=== PATIENT | male | born 1950 | race Asian ===

== ENCOUNTER 2023-12-10 14:09 | Inpatient (IN) | payer MEDICARE, SELFPAY ==
[2023-12-10] VITALS (9 sets, daily range): BP systolic 150–190; BP diastolic 54–84; BMI 24.4; BMI 24.0
--- NOTE | 2023-12-10 11:49 | ED.SKININJ ---
HPI-Injury
General
Chief Complaint: Skin Problem
Source: patient, spouse and other (pt neighbors who are fluent in [place])
Exam Limitations: none
Time Seen by Provider: 12/10/23 11:47
Nursing documentation reviewed up to this point in time: agreed with
Travel History
Have you had any contact with someone who has COVID-19?: No
Do you have any symptoms of coronavirus? Fever > 100 degrees, chills, cough, shortness of breath, sore throat, loss of taste or smell, muscle aches, or headache?: No
History of Present Illness-Injury
Initial Injury comments:
73-year-old male with history of CVA, HTN, HLD, NIDDM presents stating he has had a chronic wart on the left second toe that has become increasingly red, painful, swollen in the past 4 days [facility] had an x-ray and lab work
and EKG, the lab work and EKG were scanned into this chart. Xray in [facility]. Pt has had low grade fever. Denies chill, n/v.
Past History
Past History
ED Past Medical History: CVA, HTN, Hypercholesterolemia and NIDDM
Social History
Tobacco: Non-smoker
Personal:
Living: with family
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 )
Review of Systems
Review of Systems
Allergies reviewed?: Yes
All Other Systems: ROS reviewed and negative except as documented in HPI and ROS
Constitutional: Denies fever or chills
Respiratory: Denies trouble breathing
Cardiac: Denies chest pain
ABD/GI: Denies abdominal pain, nausea or vomiting
: Denies dysuria or difficulty voiding
Musculoskeletal: Reports other (pain and swelling left foot second toe)
Skin: Reports other (swelling, redness, discoloration left 2nd toe)
Phy Exam
Physical Exam
Physical Exam:
GENERAL: No acute distress. A&Ox3.
CONSTITUTIONAL: 100.0 on arrival
EYES: PERRL, conjunctivae normal
Neck: Supple
ENMT: moist mucus membranes, Pharynx nl
RESPIRATORY: Regular respirations, nonlabored, lungs clear.
CARDIOVASCULAR: Regular rate and rhythm, no murmurs, no rubs.
GI: Soft, nontender, normal BS
MUSCULOSKELETAL: Left second toe is swollen, red, dark grayish color with sloughing skin. Moves with ease. Well perfused. No edema
SKIN: Warm, dry, pink
PSYCH: Normal mood and affect. Well kept, interactive and appropriate
NEUROLOGIC: Awake, alert and oriented. No focal neurological deficits
Course
Orders/Labs/Results
Orders:
Orders
12/10/23 12:33
Complete Blood Count/With Diff Urgent
Comprehensive Metabolic Panel Urgent
Glycohemoglobin (HgbA1c) Urgent
LDL Cholesterol, Direct Urgent
Comment: ADD
Lactic Acid Q4H
Comment: CANCEL 2nd LACTIC ACID IF 1st LACTIC ACID IS LESS THAN 2
Blood Culture Q30M
ADI Source: Blood/Venous
Specimen Description:
12/10/23 12:48
Blood Culture Q30M
ADI Source: Blood/Venous
Specimen Description:
12/10/23 13:01
Piperacillin/Tazo 3.375 Gram [Zosyn] 3.375 gram in 50 ml IV NOW
12/10/23 13:33
Electrocardiogram (*1) Urgent
Reason for Study: Abnormal EKG
EKG- Treatment ONCE
12/10/23 13:53
CR Foot - Left 2 Views Routine
Comment:
Reason For Exam: L toe swelling/cellulitis
US Legs, Bilateral [US Periph Venous LOWER Ext Florencio] Routine
Comment:
Reason For Exam: BL LE swelling
12/10/23 13:54
Admit/Transfer Patient As Directed
Co-Sign Provider:
Level of Care: Inpatient admission
Assign to:: Telemetry
Physician / Group: Bala/hospitalist
Diagnosis: L second toe cellulitis
Reason for Telemetry: Arrhythmia
Date to Stop Telemetry: 12/13/23
Time to Stop Telemetry: 11:00
Reason for Hospitalization: L second toe cellulitis
Expected length of stay greater than two midnights?: Yes
ELOS- Estimated Length of Stay in days: 3
I certify the patient meets the requirements for IP care: Yes
12/10/23 13:55
Code Status As Directed
Resuscitation Status: Full Code
12/10/23 13:58
Add On- LAB Routine
Tests Added?: LDL level
12/10/23 14:01
Add On- LAB Routine
Tests Added?: A1C
12/10/23 Dinner
Cholesterol Lowering
At Your Request: Limited Participation
Does patient need a safe tray?: No
Cholesterol Lowering: Sodium, 2 Gram
Comment: PATIENT DOES NOT SPEAK [facility]
12/10/23 16:10
Acetaminophen [Tylenol] 650 mg PO Q4HPRN PRN
HydrALAZINE [Apresoline] 5 mg IV Q4HPRN PRN
12/10/23 16:10
WOUND/OSTOMY CONSULT Routine
Reason for Consult: L toe cellulitis
Activity As Directed
Activity Level: Out of Bed-Early Mobility
Intake/ Output As Directed
Frequency: Per unit guidelines
Vital Signs As Directed
Frequency: Per unit guidelines
Ot Eval And Treat Routine
Pt Eval And Treat Routine
Activity Level: As Tolerated
DX Deep Vein Thrombosis Video Routine
12/10/23 18:00
Enoxaparin Sodium [Lovenox] 40 mg SC QPM
Rosuvastatin Calcium [Crestor] 5 mg PO QPM
12/11/23 06:00
Basic Metabolic Panel IN AM
Complete Blood Count/No Diff IN AM
12/11/23 08:00
Lactobac/Bifidobac [Visbiome] 1 cap PO DAILY
Losartan [Cozaar] 25 mg PO DAILY
12/13/23 11:00
DC Protocol for Telemetry ONCE
Abnormal Lab Results
12/10/23
12:33
WBC 13.0 H 10^3/uL
(4.8-10.8)
RBC 3.64 L 10^6/uL
(4.70-6.10)
Hgb 11.4 L g/dL
(13.0-18.0)
Hct 32.8 L %
(39.0-52.0)
MCH 31.3 H pg
(27.0-31.0)
Abs Immat Gran (auto) 0.1 H 10^3/uL
(0-0.05)
Absolute Neuts (auto) 11.3 H 10^3/uL
(1.4-6.5)
Absolute Lymphs (auto) 0.7 L 10^3/uL
(1.2-3.4)
Absolute Monos (auto) 0.9 H 10^3/uL
(0.1-0.6)
Neutrophils % 86.9 H %
(42.2-75.2)
Lymphocytes % 5.2 L %
(20.5-51.1)
Sodium 132 L mmol/L
(135-145)
Glucose 165 H mg/dl
(70-99)
Total Protein 5.9 L g/dl
(6.3-8.2)
Albumin 3.3 L g/dl
(3.5-5.0)
12/10/23 12:33
12/10/23 12:33
Vital Signs
Initial and Last Documented VS:
Initial Vital Signs
Temp Pulse Resp BP Pulse Ox
100 F 78 16 176/65 99
12/10/23 11:17 12/10/23 11:17 12/10/23 11:17 12/10/23 11:17 12/10/23 11:17
Last Documented Vital Signs
Temp Pulse Resp BP Pulse Ox
99.8 F 82 18 152/57 97
12/10/23 16:31 12/10/23 18:20 12/10/23 16:31 12/10/23 18:20 12/10/23 16:31
MDM/Problems Addressed
Differential Diagnosis Includes:
cellulitis, osteomyelitis
MDM/Problems Addressed:
73-year-old male with history of CVA, HTN, HLD, NIDDM presents stating he has had a chronic wart on the left second toe that has become increasingly red, painful, swollen in the past 4 days he [facility] and had an x-ray and lab work
and EKG, the lab work and EKG were scanned into this chart. Xray in [facility]. Pt has had low grade fever. Denies chill, n/v.
Temp 100.0
12/10/2023 1206 PM
No bony abnormality noted on x-ray from Urgent Care, scanned into [facility]
Lab work from [facility] earlier today: CBC: WBC 12.4
12/10/2023 1311 PM
CBC: WBC 13.0
CMP with no clinically significant abnormality
Plan: Admit, cellulitis left second toe, IV antibiotics started
Hospitalist notified of admission
*Critical Care Note
Total Time (30-74mins, 75-104mins- exclusive of procedures): Not Applicable
ED Attending Note
-
Portions of this chart may have been created with voice recognition software.� Occasional wrong word or��sound alike� substitutions may have occurred due to the inherent limitations of voice recognition software.
Discharge Plan
Departure
Patient Disposition: Admit
Date of Disposition: 12/10/23
Time of Disposition: 13:06
Presentation/result/management discussed w/ accepting MD/DO: Hospitalist
Condition: Fair
Discharge Problem:
Cellulitis of second toe of left foot
Interventions
Interventions:
*Risk Screen - Suicide Last Done: 12/10/23 11:17
*General Assessment Last Done: 12/10/23 11:17
*Neglect/Abuse Screening Last Done: 12/10/23 11:17
ED- Fall Risk Assessment Last Done: 12/10/23 16:07
*ED COVID-19 Vaccine History Last Done: 12/10/23 12:23
*Nursing Disposition Last Done: 12/10/23 16:07
ED-Skin Assessment Last Done: 12/10/23 13:30
Discharge Date and Time
Discharge Date/Time: 12/10/23 16:09
[2023-12-10 12:47] LABS: % Basophils 0.3 % (0-2); % Eosinophils 0.1 % (0-6); % Immature Granulocytes 0.4 % (0-0.5); % Lymphocytes 5.2 % (20.5-51.1); % Monocytes 7.1 % (1.7-9.3); % Neutrophils 86.9 % (42.2-75.2); Absolute Immature Granulocytes 0.1 10^3/uL (0-0.05); Absolute Lymphocytes 0.7 10^3/uL (1.2-3.4); Absolute Monocytes 0.9 10^3/uL (0.1-0.6); Absolute Neutrophils 11.3 10^3/uL (1.4-6.5); Hematocrit 32.8 % (39.0-52.0); Hemoglobin 11.4 g/dL (13.0-18.0); Mean Corp Hgb Conc. 34.8 g/dL (33.0-37.0); Mean Corpuscular Hgb 31.3 pg (27.0-31.0); Mean Corpuscular Volume 90.1 fL (80.0-94.0); Mean Platelet Volume 10.4 fL (7.4-10.4); Nucleated Red Blood Cells % 0 % (-); Platelet Count 235 10^3/uL (130-400); Red Blood Cell Count 3.64 10^6/uL (4.70-6.10); Red Cell Dist. Width 12.1 % (11.5-14.5)
[2023-12-10 13:02] LABS: Lactic Acid 1.1 mmol/L (0.7-2.0)
[2023-12-10 13:05] LABS: ALT (SGPT) 21 U/L (0-50); AST (SGOT) 28 U/L (17-59); Albumin 3.3 g/dl (3.5-5.0); Alkaline Phosphatase 83 U/L (38-126); Blood Urea Nitrogen 12 mg/dl (9-20); Calcium 8.8 mg/dl (8.4-10.2); Carbon Dioxide 28 mmol/L (22-30); Chloride 100 mmol/L (98-107); Estimated Creatinine Clearance 76 ml/min; Glucose 165 mg/dl (70-99); Potassium 4.3 mmol/L (3.5-5.1); Sodium 132 mmol/L (135-145); Total Bilirubin 0.8 mg/dl (0.2-1.3); Total Protein 5.9 g/dl (6.3-8.2); eGFR > 60.00
--- NOTE | 2023-12-10 13:26 | HPS.HSE ---
Addendum entered and electronically signed by Zuleika Mckenna MD 12/10/23 15:56:
X-ray left foot noted osteolysis of the distal phalanx of second toe, with concern for osteomyelitis.
Will get MRI with contrast, ordered NSS 500 cc after MRI for renal protection.
ID consult
Discussed with ID Dr. Valencia, recommends Unasyn, will change IV Vanco/Ancef to Unasyn.
Original Note:
Family Physician
-
Family Physician: * NONE
Chief Complaint
-
Left second toe cellulitis
History of Present Illness
HPI: 73-year-old male with PMH stroke 15 months [employer] CL[employer] (with residual mild LUE and LLE weakness), HTN, HLD, diet controlled DM, who has a wart on his L second toe that was removed the week prior, p/w erythematous, swelling and painful second toe.
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
Of note, his [place]). He admits to taking his ARB (Edarbi 40 mg) only intermittently and has not started statin for his HLD/stroke.
Medical History
Past Medical History
Past Medical History: Reports Other
Additional Past Medical History:
stroke 15 months [employer] (with residual mild LUE and LLE weakness)
HTN
HLD
diet controlled DM
Past Surgical History: Reports None
Social History
Tobacco: Non-smoker
Personal:
Living: With Family
Family History
Family History: Not pertinent
Allergies / Home Medications
Allergies reflects when Allergies were last updated in [facility].
Home Medications with original date entered in [facility]
Allergy/Medication List:
Allergies
Allergy/AdvReac Type Severity Reaction Status Date / Time
No Known Allergies Allergy Unverified 12/10/23 11:17
Home Medications
azithromycin 250 mg tablet 0 mg PO .COMPLEX 12/10/23
Review of Systems
-
Skin: Reports See HPI
Physical Exam
Vital Signs
Vital Signs
Temp Pulse Resp BP Pulse Ox
37.7 C 78 16 176/65 99
12/10/23 11:17 12/10/23 11:17 12/10/23 11:17 12/10/23 11:17 12/10/23 11:17
Physical Exam
General: Well Developed, Well Nourished, No Apparent Distress, Comfortable and Conversant
HEENT: NormoCephalic, Moist mucous membranes and Atraumatic
Respiratory: Clear and Non Labored Respirations; No Accessory Resp Muscle Use
Cardiac: S1/S2 and Regular Rhythm; No Murmur or Rub
GI: Soft, Non Tender, Non Distended and Normal Bowel Sounds; No Organomegaly
Rectal: Deferred by Provider
Musculoskeletal: No Clubbing, No Cyanosis, Edema, Left Lower Extremity and Edema, Right Lower Extremity
Skin: Rash (L second toe)
Neuro: Awake
Psych: Calm and Intact Judgment/Insight
Laboratory Results
-
12/10/23 12:33
12/10/23 12:33
Laboratory Results
Lactic Acid Cancelled 12/10/23 16:15
Total Bilirubin 0.8 mg/dl (0.2-1.3) 12/10/23 12:33
AST 28 U/L (17-59) 12/10/23 12:33
ALT 21 U/L (0-50) 12/10/23 12:33
Alkaline Phosphatase 83 U/L (38-126) 12/10/23 12:33
Data Reviewed
-
Lab Data: Labs Reviewed by me
Impression/Plan
-
HPI: 73-year-old male with PMH stroke 15 months [employer] (with residual mild LUE and LLE weakness), HTN, HLD, diet controlled DM, who has a wart on his L second toe that was removed the week prior, p/w erythematous, swelling and painful second toe.
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
Of note, his [place]). He admits to taking his ARB (Edarbi 40 mg) intermittently and has not started statin for his HLD.
A/P:
# L second toe cellulitis
Check XR
Check BL LE US (recent prolonged air travel)
s/p Zosyn in ED, cont Ancef/Vancomycin with probiotic
Follow blood Cx
Wound care CS
PT OT eval
monitor for clinical improvement.
# Essential HTN
substitute [employer] CL[employer] ARB (Edarbi 40 mg) with Losartan 25 mg, adjust dose as needed.
Hydralazine IV PRN for SBP > 150.
# ASCVD with recent stroke (mild LUE and LLE weakness)
# HLD
pt states his recent LDL at 150, goal is < 70 following CVA
Check LDL level, would like to start statin and family friend opted for Crestor.
Crestor 5 mg started
PT OT eval as above
# Diet controlled DM
Check A1C
cover with ISS
# TWI on inferior lateral leads, suspect chronic
discussed with pt and son on the phone
DVT ppx: Lovenox SQ
FC
[2023-12-10] MEDS: ZOSYN 50 IV (13:45)
--- NOTE | 2023-12-10 14:48 | WOUNDNOTE ---
Wound/SKIN CARE NOTE: Pt identified by name and .
L toes
Medial view of L toe #2
Top of L foot
Bottom of L foot
L lower glover
L lower glover, area above ankle
L foot
R glover lower leg, mostly knee
R lower glover above R ankle
[2023-12-10 15:37] LABS: LDL Cholesterol, Direct 125 mg/dl
[2023-12-10 16:47] LABS: Glucose - Point of Care 126 mg/dl (70-99)
[2023-12-10] MEDS: NOVOLOG FLEXPEN-LOW RESISTANCE SC (16:47)
[2023-12-10] MEDS: LOVENOX SC (16:56)
[2023-12-10] MEDS: CRESTOR 5 MG PO (16:56)
[2023-12-10] MEDS: UNASYN IV ×2 (16:56→23:42)
[2023-12-10] MEDS: APRESOLINE 5 MG IV ×2 (17:41→23:43)
--- NOTE | 2023-12-10 20:05 | PTCARENOTE ---
Pt with temp 100.4- offered tylenol, pt refusing.
[2023-12-10 21:11] LABS: Glucose - Point of Care 220 mg/dl (70-99)
[2023-12-11] VITALS (10 sets, daily range): BP systolic 141–179; BP diastolic 57–71; PULSE 75; O2SAT 97
[2023-12-11] MEDS: APRESOLINE 5 MG IV (04:05)
--- NOTE | 2023-12-11 05:33 | PTCARENOTE ---
Pts rhythm irregular on telemetry, EKG completed shows 'NSR with sinus arrhythmia ST and T wave abnormality.' VSS. Will continue to monitor.
[2023-12-11] MEDS: UNASYN IV ×4 (05:46→23:21)
[2023-12-11 07:14] LABS: Glucose - Point of Care 156 mg/dl (70-99)
[2023-12-11 07:23] LABS: Hematocrit 31.3 % (39.0-52.0); Hemoglobin 10.8 g/dL (13.0-18.0); Mean Corp Hgb Conc. 34.5 g/dL (33.0-37.0); Mean Corpuscular Hgb 30.9 pg (27.0-31.0); Mean Corpuscular Volume 89.4 fL (80.0-94.0); Mean Platelet Volume 10.7 fL (7.4-10.4); Platelet Count 215 10^3/uL (130-400); White Blood Cell Count 12.1 10^3/uL (4.8-10.8)
[2023-12-11 08:02] LABS: Blood Urea Nitrogen 13 mg/dl (9-20); Calcium 8.5 mg/dl (8.4-10.2); Carbon Dioxide 24 mmol/L (22-30); Chloride 96 mmol/L (98-107); Estimated Creatinine Clearance 76 ml/min; Glucose 155 mg/dl (70-99); Potassium 3.9 mmol/L (3.5-5.1); Sodium 129 mmol/L (135-145); eGFR > 60.00
--- NOTE | 2023-12-11 08:06 | W.PN.HOSP.TC ---
Addendum entered and electronically signed by Valentin Montes MD 12/27/23 08:53:
Sepsis was present on admission
Original Note:
Today's Communication/Plan
-
Continue IV antibiotics. MRI of the foot. Vascular studies. Podiatry and vascular surgery consults.
Assessment / Plan
Assessment / Plan
Physical exam:
General: Acutely ill
HEENT: Normocephalic, Atraumatic and Moist Mucous Membranes
Respiratory: Clear to Auscultation; Negative Wheezes, Rales or Rhonchi
Cardiac: Regular Rhythm and S1/S2
GI: Soft, Nontender and Nondistended
Musculoskeletal: Left second toe is edematous and erythematous with presence of serous drainage. Pedal pulses are precarious. No Clubbing
Neuro: Awake, Alert and Oriented
Psych: Calm
A/P:
A/P:
# L second toe infected ulcer and left foot cellulitis, and osteomyelitis of second middle and distal phalanx:
WBC 13--> 12.1
Check XR--> osteolysis of the distal phalanx of second toe with concerns for osteomyelitis
MRI consistent with osteomyelitis
ID consulted and appreciated their input
Check BL LE US (recent prolonged air travel) and negative for DVT
s/p Zosyn in ED, and currently on IV Unasyn
Follow blood Cx
Wound care CS
PT OT eval
Podiatry consult today
Vascular surgery consult
Plan for AMI/vascular studies.
Discussed with at bedside
# Essential HTN
substitute ORIENTOR ARB (Edarbi 40 mg) with Losartan 25 mg, adjust dose as needed.
Hydralazine IV PRN for SBP > 150.
# ASCVD with recent stroke (mild LUE and LLE weakness)
# HLD
pt states his recent LDL at 150, goal is < 70 following CVA�
Check LDL level, would like to start statin and family friend opted for Crestor.
Crestor 5 mg started
PT OT eval as above
# Diet controlled DM
Check A1C and it is 7.2
cover with ISS
#Anemia
Hemoglobin 10.8 today
Continue to monitor
# TWI on inferior lateral leads, suspect chronic
discussed with pt and son on the phone
Chest pain-free
#Hyponatremia
NA 132--> 129
Continue to monitor closely
DVT ppx: Lovenox SQ
CODE STATUS:
Full code
Total time spent on today's encounter was 52 minutes which included time spent in counseling the patient/family regarding diagnosis and treatment plan as listed above, goals of care, and symptom management. Case was discussed with nursing staff,
specialists, and care coordinators/case management. All labs and imaging personally reviewed by me. Remainder the time spent in detailed review of previous records, lab data, imaging, and other medical provider documentation.
Anticipated Discharge: > 48 hours
Subjective/Interval History
-
Date of Service: December 11, 2023
Patient complains of discomfort in the left foot. No chest pain or shortness of breath.
Objective Data
-
Labs:
Laboratory Results
12/11/23
06:57
WBC 12.1 H
Hgb 10.8 L
Hct 31.3 L
Plt Count 215
Sodium 129 L
Potassium 3.9
Chloride 96 L
Carbon Dioxide 24
BUN 13
Creatinine 0.8
Glucose 155 H
Calcium 8.5
Vital Signs:
Vital Signs
Temp Pulse Resp BP Pulse Ox
98.1 F 78 18 149/57 94
12/11/23 03:51 12/11/23 05:45 12/11/23 03:51 12/11/23 05:45 12/11/23 03:51
I&O
12/10/23 12/11/23 12/12/23
06:59 06:59 06:59
Intake Total 960 / 960
Balance 960 / 960
Review of Systems
-
All other systems: Reviewed and negative
[2023-12-11] MEDS: COZAAR 25 MG PO (08:12)
[2023-12-11] MEDS: VISBIOME 1 CAP PO (08:12)
[2023-12-11] MEDS: NOVOLOG FLEXPEN-LOW RESISTANCE SC (08:36)
[2023-12-11 08:50] LABS: Glycohemoglobin (HgbA1c) 7.2 % (4.0-5.6)
--- NOTE | 2023-12-11 10:18 | CM ---
Patient seen bedside.
IA completed.
Patient lvies with spouse in a 2 story home, holds rail with steps.
patient independent prior to admission, drives.
patient does not have a PCP, will provide list.
Patient has not had VN in the past.
patient was in an acute rehab following a CVA in the past.
PCP: none
Pharmacy: [facility].
Plan: home no needs anticipated.
--- NOTE | 2023-12-11 10:23 | WOUNDNOTE ---
L 2ND TOE PLANTAR
--- NOTE | 2023-12-11 10:24 | WOUNDNOTE ---
L 2ND TOE DORSAL
--- NOTE | 2023-12-11 10:26 | WOUNDNOTE ---
MABLE RN note: Patient admitted with cellulitis of L 2nd toe.
See H&P for complete history. 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
PMH: NIDDM,CVA,HTN and increased cholesterol.
Wound Location and type/assessment: Patient admitted with: L 2nd toe weeping diabetic wound, mainly medially. Erythema of dorsal foot with edema. Per report patient had a wart removed recently from toe. Patient states he went to a nail salon and
had his toe nails trimmed too short on 2nd toe and feels reason for infection. Non palpable pedal pulses, + audible faint pulses with Doppler. 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 L toe x ray showed concern for osteomyelitis. MRI
ordered and pending. Vascular ultrasound was negative for DVT.
Appetite: good.
Pressure redistribution devices in place: Accumax, can turn self, is ad dora.
Plan: Dry dressing applied. Notified Dr. Montes of Doppler finding, may want to consider AMI/TBI and Podiatry consult.
Confirmed local wound care. Updated care plan and nurse Juarez, will follow as needed.
Note to case management of equipment requested for discharge: TBD
Recommend follow up at wound care center upon discharge.
[2023-12-11] MEDS: NSS 250 IV (11:47)
[2023-12-11 11:52] LABS: Glucose - Point of Care 165 mg/dl (70-99)
[2023-12-11] MEDS: NOVOLOG FLEXPEN-LOW RESISTANCE 1 UNITS SC (12:05)
--- NOTE | 2023-12-11 12:05 | CON.ID ---
Consultation
-
Date/Time Consultation Requested: 12/10/2023 1550
Date/Time Consultation Performed: 12/11/2023 1120
Requesting Provider: Dr. Mckenna
Performing Provider: Dr. Hubbard
Reason for Consultation: Left second toe infection
Chief Complaint / Past History
History of Present Illness
Errol Rodriguez is a 73-year-old man being evaluated at the request of Dr. Mckenna in regards to a left second toe infection. History is obtained from chart review, along with patient interview. The is visiting the local area for the [place] new year,
and approximately 2 weeks ago had a wart on the plantar surface of his left second toe removed at a nail salon. Several days later he had increasing pain and red of the toe, with extension of erythema up his foot and onto his leg. He additionally
developed some low-grade fevers, up to 37.5 �C. No history of nausea or vomiting. He reportedly took Zithromax prior to admission. Prior to coming in he did not see any pus in the area. He reports some pain with ambulation. He admits to some
mild swelling in the left inguinal region.
Past History
Additional Past Medical History:
Hx CVA with mild left residual
HTN
Dyslipidemia
DM
Past Surgical History: None
Allergy History:
No Known Allergies Allergy (Unverified 12/10/23 11:17)
Medications Reviewed: Yes
Current Antibiotics:
Unasyn
Social History
Tobacco: Non-Smoker
Alcohol: None
Drug: None
Personal:
Living: With Family
Employment: Retired
Family History
Family History: Not Pertinent
Review of Systems
Vital Signs
Temp Pulse Resp BP Pulse Ox
98.4 F 78 20 141/68 95
12/11/23 07:30 12/11/23 08:12 12/11/23 07:30 12/11/23 08:12 12/11/23 07:30
Physical Exam
Physical Exam
Constitutional: No Acute Distress, Well Developed, Comfortable and Non-toxic
Head: Normocephalic
Eyes: Pupils Equal, Pupils Round, No Conjunctival Hemorrhage and Sclera Anicteric
Oral: No Thrush and No Ulcers
Lymph Nodes: Negative Lymphadenopathy
Cardiovascular: Regular Rate and S1/S2; Negative S3/S4, Murmur or Rub
Pulmonary: Clear, Symmetric and Non Labored; Negative Wheezes, Rales or Rhonchi
Gastrointestinal: Soft, Non Tender, Non Distended and Normal Bowel Sounds
Genito-Urinary: Negative Han[place]
Extremities: Edema (Trace left lower extremity) and Erythema (Left second toe, extending onto foot and past ankle to some degree)
Skin: Warm and Dry; Negative Rash or Jaundice
Neurological: Awake, Alert and Oriented
Psychological: Calm
.
Lab / Diagnostic Study Results
12/11/23 06:57
12/11/23 06:57
Abs Immat Gran (auto) 0.1 10^3/uL (0-0.05) H 12/10/23 12:33
Absolute Neuts (auto) 11.3 10^3/uL (1.4-6.5) H 12/10/23 12:33
Absolute Lymphs (auto) 0.7 10^3/uL (1.2-3.4) L 12/10/23 12:33
Absolute Monos (auto) 0.9 10^3/uL (0.1-0.6) H 12/10/23 12:33
Absolute Basos (auto) 0.0 10^3/uL (0-0.2) 12/10/23 12:33
Immature Gran % 0.4 % (0-0.5) 12/10/23 12:33
Neutrophils % 86.9 % (42.2-75.2) H 12/10/23 12:33
Lymphocytes % 5.2 % (20.5-51.1) L 12/10/23 12:33
Monocytes % 7.1 % (1.7-9.3) 12/10/23 12:33
Eosinophils % 0.1 % (0-6) 12/10/23 12:33
Basophils % 0.3 % (0-2) 12/10/23 12:33
Lactic Acid Cancelled 12/10/23 16:15
Microbiology Results
Micro:
12/10/23 18:46 MRSA Screen - Pending
Nose
12/10/23 12:48 Blood Culture - Pending
Blood/Venous
12/10/23 12:33 Blood Culture - Pending
Blood/Venous
Imaging:
12/11/2023 MRI left lower extremity: Examination is limited by motion artifact, although osseous erosion at the tuft of the second distal phalanx is noted. Bone marrow edema is noted within the second distal phalanx and the distal aspect of the
second middle phalanx, most compatible with osteomyelitis. No acute fracture or dislocation. Moderate osteoarthritis is noted. Soft tissue edema around the second toe is compatible with cellulitis, although no drainable fluid collection or
abscess is noted.
12/10/2023 Duplex ultrasound lower extremity: No evidence of DVT. Mildly enlarged left groin lymph nodes. Please see full dictation for additional detail.
12/10/2023 X-ray left foot: Osteolysis of the distal tuft of the distal phalanx of the second digit concerning for osteomyelitis.
Assessment / Plan
Left second toe osteomyelitis
Left foot cellulitis
Leukocytosis
Fevers
Hx CVA with mild left residual
HTN
Dyslipidemia
DM
Recommendations:
Continue with Unasyn for the present.
I have obtained a culture of the drainage from his left second toe and will send to microbiology for further workup.
Await further input from Podiatry.
Check ESR and CRP.
Monitor white count and temperature curve.
--- NOTE | 2023-12-11 12:23 | W.CS.POD ---
Consult Summary - Podiatry
-
73 yo male seen at bedside with LT 2nd toe redness,erythematous with purplish discoloration, HE states that he had a small callus like lesion which he had it removed in a nail a salon few days ago, the LT 2nd toe gotten worse and he presented to the
hosp for evaluation and management, currently he is on IV Abx per ID, no acute distress, no chest pain or SOB. HIS WBC count improved from yesterday 13 > 12.1 today.
Xray and MRi done shows osteomyelitic changes to LT 2nd distal toe. h/o Diet controlled diabetes
Reviewed PMH, meds and allergies
Exam : Non palpable pedal pulses to LT foot. Rt foot palpable PT pulse
LT foot with fore foot erythema and LT 2nd toe with dusky discoloration and presence of foul odor with swollen and erythematous toe. no active purulence noted, presence of distal toe ulceration with infected tissue.
No palpable crepitus or any abscess to LT foot.
A/P ; LT foot cellultis
LT 2nd toe ulceration with distal toe osteomyelitis
PAD
Plan : Cont IV abx per ID
PT scheduled for Non invasive vascular studies
Will request vascular surgery consult.
Podiatry will follow
--- NOTE | 2023-12-11 13:16 | CON.VAS ---
Addendum entered and electronically signed by Constantino Hanley III, MD 12/11/23 18:53:
This patient was seen and examined with SAURABH Chisholm. I agree with the history and physical exam as well as the assessment and plan. I have the following additions:
73-year-old male. Nonhealing wound of the left second toe and associated cellulitis extending to the left foot.
Abnormal AMI/TBI on the left
Palpable left femoral and left popliteal artery pulses
Nonpalpable pedal pulses on the left
I am recommending a diagnostic arteriogram of the left lower extremity with possible endovascular intervention. The technical aspects of this procedure were discussed with the patient and his . The benefits and rationale for this approach were
discussed with both of them in detail. Operative risks were discussed with them in detail including but not limited to bleeding, arterial access site injury, contrast nephropathy, distal embolization and limb loss. We also discussed the
possibility that endovascular intervention may not be successful or possible and that he may need open revascularization. I also explained all of this to his son Cb who is a congenital heart surgeon in [place] ([phone]).
Patient expressed an understanding of our conversation and agrees to proceed with surgery as detailed above.
Signed:
Constantino Hanley III, MD
[facility] Surgery
[phone] (kpvh)
Original Note:
Consultation
Consultation Request
Date/Time Consultation Performed: 12/11/2023 1545
Requesting Provider: Zuleika Mckenna MD
Performing Provider: Safia Palomino NP-C for Constantino Hanley III, MD
Reason for Consultation: Left second digit infection
Medical History
-
Chief Complaint: Left second digit infection
History of Present Illness:
This is a 73-year-old male patient with significant past medical history of stroke with left sided residual weakness, hypertension, hyperlipidemia, and diet controlled DM who presents to [place] ED on 12/10/2023 with reports of worsening left foot
second digit cellulitis. Patient reports roughly two weeks ago noticing a wart developing on the plantar surface of his left second digit, which he had removed at a nail salon. Several days later he noticed pain and erythema at the site, that
continued to worsen over time and spread to dorsal area of foot. 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 However, when he noticed
continued progression of erythema, edema, and pain he presented to our ER for further evaluation. He denies prior vascular surgery intervention or diagnosis of peripheral artery disease. AMI/TBI with the following results, left AMI 0.65, left TBI
0.2. Right AMI 0.76, right TBI 0.34. Prompting vascular consultation.
Past Medical History
Past Medical History: CVA (mild left UE and LE residual), HTN, NIDDM and Other (HLD)
Past Surgical History: None
Social History
Tobacco: Non-Smoker
Personal:
Living: With Family
Allergies / Home Medications
Allergy/AdvReac Type Severity Reaction Status Date / Time
No Known Allergies Allergy Unverified 12/10/23 11:17
Medication Instructions Recorded Confirmed Type
azithromycin 250 mg tablet 0 mg PO .COMPLEX Infection 12/10/23 12/10/23 History
Review of Systems
-
History Source: Patient
Constitutional: Reports No Symptoms
EENT: Reports No Symptoms
Respiratory: Reports No Symptoms
Cardiac: Reports No Symptoms
Abdomen/GI: Reports No Symptoms
: Reports No Symptoms
Musculoskeletal: Reports No Symptoms
Skin: Reports Other (Left foot second digit swelling, redness, pain)
Neurological: Reports No Symptoms
Endocrine: Reports No Symptoms
Physical Exam
Vital Signs
Temp Pulse Resp BP Pulse Ox
98.7 F 78 16 179/66 97
12/11/23 12:00 12/11/23 12:00 12/11/23 12:00 12/11/23 12:00 12/11/23 12:00
Lab Results
12/11/23 06:57
12/11/23 06:57
Physical Exam
General: No Apparent Distress and Comfortable
HEENT: Normocephalic, Anicteric and Atraumatic
Respiratory: Non Labored Respirations
Cardiac: Negative JVD
GI: Soft, Non Tender and Non Distended
Skin: Warm and Other (Left foot second digit with erythema, edema, open wound, with extension and rhythm up dorsum of foot)
Neuro: AO x 3
Pulses: Bilateral Femoral: +2, Left Popliteal: +2 and Left Dorsalis Pedis: +1
Assessment / Plan
-
Assessment: 73-year-old male with non healing/cellulitis of left second digit, suspect PAD
Plan:
Given markedly decreased AMI and TBI of left lower extremity would recommend left lower extremity arteriogram for further evaluation of peripheral artery disease and to increase odds of healing second digit cellulitis or possible/eventual
amputation site if podiatry deems toe unsalvageable.
N.p.o. after midnight for arteriogram tomorrow 12/12/23
Continue local wound care
Appreciate podiatry recommendations
I performed this shared service with the attending. I evaluated the patient [id number] and have entered clinical documentation as shown in the encounter note. I performed the following component(s): history and physical exam. Note that medical
decision making is not final until attested by vascular attending.
Data Reviewed
-
Ultrasound: Other (AMI/TBI reviewed)
Labs: Labs Reviewed by me and Discussed with Physician
[2023-12-11 16:53] LABS: Glucose - Point of Care 209 mg/dl (70-99)
[2023-12-11] MEDS: LOVENOX 40 MG SC (17:09)
[2023-12-11] MEDS: CRESTOR 5 MG PO (17:09)
[2023-12-11] MEDS: NOVOLOG FLEXPEN-LOW RESISTANCE 2 UNITS SC (17:10)
--- NOTE | 2023-12-11 18:33 | PTCARENOTE ---
Pt has an order of Hydralizine PRN if SBP is >150. Pt has refused this medication at this time. Education was provided.
[2023-12-11 22:04] LABS: Glucose - Point of Care 154 mg/dl (70-99)
[2023-12-11] MEDS: FLUSH (NSS) 2 FLUSH IV (23:23)
[2023-12-12] VITALS (21 sets, daily range): BP systolic 132–190; BP diastolic 54–82
[2023-12-12] MEDS: UNASYN IV ×4 (05:27→22:50)
[2023-12-12] MEDS: FLUSH (NSS) 1 FLUSH IV (05:27)
[2023-12-12 06:14] LABS: % Basophils 0.2 % (0-2); % Eosinophils 0.1 % (0-6); % Immature Granulocytes 0.3 % (0-0.5); % Monocytes 6.5 % (1.7-9.3); % Neutrophils 86.9 % (42.2-75.2); Absolute Lymphocytes 0.6 10^3/uL (1.2-3.4); Absolute Monocytes 0.7 10^3/uL (0.1-0.6); Absolute Neutrophils 8.8 10^3/uL (1.4-6.5); Hemoglobin 10.8 g/dL (13.0-18.0); Mean Corp Hgb Conc. 34.8 g/dL (33.0-37.0); Mean Corpuscular Hgb 31.3 pg (27.0-31.0); Mean Corpuscular Volume 89.9 fL (80.0-94.0); Nucleated Red Blood Cells % 0 % (-); Platelet Count 241 10^3/uL (130-400); Red Blood Cell Count 3.45 10^6/uL (4.70-6.10); Red Cell Dist. Width 12.2 % (11.5-14.5); White Blood Cell Count 10.1 10^3/uL (4.8-10.8)
[2023-12-12 06:35] LABS: Blood Urea Nitrogen 13 mg/dl (9-20); Calcium 8.6 mg/dl (8.4-10.2); Carbon Dioxide 24 mmol/L (22-30); Chloride 99 mmol/L (98-107); Estimated Creatinine Clearance 76 ml/min; Glucose 138 mg/dl (70-99); Potassium 3.9 mmol/L (3.5-5.1); Sodium 132 mmol/L (135-145); eGFR > 60.00
[2023-12-12 07:01] LABS: Glucose - Point of Care 142 mg/dl (70-99)
--- NOTE | 2023-12-12 09:00 | W.PN.HOSP.TC ---
Today's Communication/Plan
-
Continue IV antibiotics, plan for vascular studies and procedure.
Assessment / Plan
Assessment / Plan
Physical exam:
General: Acutely ill
HEENT: Normocephalic, Atraumatic and Moist Mucous Membranes
Respiratory: Clear to Auscultation; Negative Wheezes, Rales or Rhonchi
Cardiac: Regular Rhythm and S1/S2
GI: Soft, Nontender and Nondistended
Musculoskeletal: Left second toe is edematous and erythematous with presence of serous drainage. Pedal pulses are precarious to absent. No Clubbing
Neuro: Awake, Alert and Oriented
Psych: Calm
A/P:
Sepsis due to left second toe infected ulcer, left foot cellulitis, and osteomyelitis of second middle and distal phalanx--> continue IV Unasyn, MRI consistent with osteomyelitis, superficial wound culture with Staph aureus and Streptococcus
agalactiae, ID podiatry and vascular surgery consulted. Plan for diagnostic angiogram of left lower extremity with possible endovascular intervention. Discussed with at bedside today.
Primary HTN-->substitute BATH SOLUTION MAKER ARB (Edarbi 40 mg) with Losartan 25 mg, adjust dose as needed, Hydralazine IV PRN for SBP > 150.
ASCVD with recent stroke (mild LUE and LLE weakness)/ HLD-->pt states his recent LDL at 150, goal is < 70 following CVA, LDL 125 now, would like to start statin and family friend opted for Crestor upon discussion with Dr Mckenna. Crestor 5 mg
started
Diet controlled DM--> checked A1C and it is 7.2, cont cover with ISS
Anemia-->Hemoglobin 10.8 today, continue to monitor
TWI on inferior lateral leads, suspect chronic-->Dr Mckenna discussed with pt and son on the phone. Remains chest pain-free
Hyponatremia--> NA 132 stable, cont to monitor
DVT ppx-->Lovenox SQ
CODE STATUS-->Full code
Anticipated Discharge: > 48 hours
Subjective/Interval History
-
Date of Service: December 12, 2023
Patient with complaints of discomfort on the left foot, no chest pain or shortness of breath. Afebrile
Objective Data
-
Labs:
Laboratory Results
12/12/23
05:16
WBC 10.1
Hgb 10.8 L
Hct 31.0 L
Plt Count 241
Sodium 132 L
Potassium 3.9
Chloride 99
Carbon Dioxide 24
BUN 13
Creatinine 0.8
Glucose 138 H
Calcium 8.6
Vital Signs:
Vital Signs
Temp Pulse Resp BP Pulse Ox
98.7 F 76 20 158/67 97
12/12/23 03:45 12/12/23 03:45 12/12/23 03:45 12/12/23 03:45 12/12/23 03:45
I&O
12/11/23 12/12/23 12/13/23
06:59 06:59 06:59
Intake Total 960 / 960 430 / 430
Balance 960 / 960 430 / 430
Review of Systems
-
All other systems: Reviewed and negative
[2023-12-12] MEDS: NOVOLOG FLEXPEN-LOW RESISTANCE SC ×3 (09:26→17:45)
[2023-12-12] MEDS: COZAAR 25 MG PO (09:27)
[2023-12-12] MEDS: VISBIOME 1 CAP PO (09:27)
--- NOTE | 2023-12-12 11:09 | CM ---
Patient seen bedside.
NPO for arteriogram.
Patient continues on IV anbx.
patient and family requesting private room, manager community development aware.
Plan: home with family.
Currently no PCP (listing provided yesterday)
[2023-12-12 12:14] LABS: Glucose - Point of Care 132 mg/dl (70-99)
--- NOTE | 2023-12-12 14:19 | W.SUR.PREOP ---
Pre-Operative Surgical Note
-
I have examined this patient prior to the performance of the scheduled procedure.
The patient's condition is unchanged from the time of the current History and
Physical and the patient is able to undergo the scheduled procedure.
[2023-12-12] MEDS: NSS 250 IV (14:47)
--- NOTE | 2023-12-12 15:09 | PTCARENOTE ---
Pt arrived from 406-1 for lower extremity angio. Vital signs taken. Pt arrived with 0.9%NS infusing @250ml/hr. Pt waiting to be seen by anesthesia.
--- NOTE | 2023-12-12 16:49 | W.PV.INTER ---
VPI Note
Pre Admission Note
Functional Status: Full
Ambulation: Ambulate Independently
Pre Op Medications
Pre Op ASA: No
Pre Op Statin: No
Pre Op ANDRZEJ Inhibitor/ARB: No
Pre Op P2y12 Antagonist: None
Pre Op Beta Blockers: No
Pre Op Chronic Anticoagulant: None
Pre Op Cilostazol: No
Post Op Medications
Post Op ASA: Yes
Post Op Statin: Yes
Post Op ANDRZEJ Inhibitor/ARB: Yes
Post Op P2y12 Antagonist: None
Post Op Beta Blockers: No
Post Op Chronic Anticoagulant: None
Post Op Cilostazol: No
--- NOTE | 2023-12-12 16:49 | W.SUR.POST ---
Surgical Immediate Post Op
Note
Pre Op Diagnosis: PAD
Post Op Diagnosis: PAD
Procedure Performed: LLE angiogram, balloon angioplasty below knee popliteal artery
Primary Surgeon: Talon
Anesthesia: local and sedation
Estimated Blood Loss: <2cc
Fluids: see anesthesia flow sheet
Drains/Shunts: none
Specimens/Cultures: none
Doppler/Duplex/Angio (Y/N): Y
Complications: none
Operative Findings: anterior tibial disease
[2023-12-12] MEDS: LOW STRENGTH ASPIRIN 81 MG PO (17:44)
[2023-12-12] MEDS: NSS 1000 IV (17:44)
[2023-12-12 17:46] LABS: Glucose - Point of Care 116 mg/dl (70-99)
--- NOTE | 2023-12-12 17:59 | OR.RPT ---
Operative Report
Operative Report
Date of Operation: 12/12/2023
Pre Op Diagnosis: Critical limb threatening ischemia, left lower extremity
Post Op Diagnosis: Critical limb threatening ischemia, left lower extremity
Procedure:
1.) Balloon angioplasty of left tibioperoneal trunk stenosis (3.5 mm x 40 mm angioplasty balloon)
2.) Diagnostic aortobiiliac arteriogram
3.) Diagnostic left lower extremity arteriogram
4.) Ultrasound-guided percutaneous access to the right common femoral artery
Surgeon: Constantino Hanley III, MD
Anesthesia: Sedation with local
Fluoroscopy:
13.8 min
86 mGy
16.65 Gy.cm2
Complications: None
Estimated Blood Loss: Less than 10 cc
History and Indications for Procedure: 73-year-old male with critical limb threatening ischemia of the left lower extremity manifested by nonhealing left toe wound, osteomyelitis and cellulitis of the forefoot. Preoperative vascular lab studies
were abnormal.
Procedure in Detail: Errol Rodriguez was correctly identified and placed supine on the operating table. After adequate induction of anesthesia the bilateral groins were prepped and draped in the usual sterile fashion. A timeout was performed
with the nursing and anesthesia staff confirming the patient's identity as well as the nature and laterality of the procedure.
The right common femoral artery was identified under ultrasound guidance. The artery was patent. A high femoral bifurcation was identified under ultrasound guidance but there was a window of common femoral artery to access over the femoral head.
The superior and inferior aspects of the femoral head were identified with radiographic guidance and marked at the skin level. The proposed puncture site was infiltrated with local anesthesia. We saved a copy of the ultrasound image to the medical
record. Under ultrasound guidance we accessed the right common femoral artery with a micropuncture needle and upsized to a 5 Fr sheath over a Bentson wire. The wire and a ShepherWe Tribute hook flush catheter were advanced into the distal abdominal aorta
and a diagnostic aorto-biiliac arteriogram was performed:
AORTO-ILIAC ARTERIOGRAM:
Aorta: Patent. Focal moderate to high-grade stenosis identified in the infrarenal abdominal aorta at the origin of the NEY.
Right common iliac artery: Patent with no stenosis identified
Right external iliac artery: Patent with no stenosis identified
Left common iliac artery: Patent with no stenosis identified
Left external iliac artery: Patent with no stenosis identified
Under roadmap guidance using a Glidewire and the ShepherWe Tribute hook catheter we selected the left common iliac artery and then the external iliac artery. A catheter was tracked up and over the aortic bifurcation and placed in the distal external iliac
artery. A diagnostic left lower extremity arteriogram was then performed which demonstrated the following:
LEFT LOWER EXTREMITY:
Common femoral artery: Patent with no stenosis identified
Profunda femoral artery: Patent with no stenosis identified
Superficial femoral artery: Patent with no stenosis identified
Popliteal artery: Patent with no significant stenosis
Anterior tibial artery: Occluded. Reconstitution of the dorsalis pedis artery is identified via peroneal artery collaterals.
Tibioperoneal trunk: Patent with focal high-grade stenosis at the origin
Peroneal artery: Patent with no stenosis identified. Anterior and posterior branches at the ankle reconstitutes the dorsalis pedis and posterior tibial artery, respectively
Posterior tibial artery: Occluded. Reconstitutes behind the medial malleolus from peroneal artery collaterals. Plantar branch flow is identified in the foot.
ENDOVASCULAR INTERVENTION:
Systemic heparin was administered. Selected the superficial femoral artery with the Glidewire and begum's hook catheter. Exchanged out for a Storq wire. Exchanged out for a 5 Fr 70 cm sheath over a Storq wire. Selected the popliteal artery
under roadmap guidance with Quickcross catheter and glidewire. The tibioperoneal trunk stenosis was crossed with a Quickcross and hydrophilic tip 0.014 wire. The wire and catheter were advanced into the peroneal artery and subtraction angio
confirmed proper position in the true lumen. A 3.5 mm x 40 mm angioplasty balloon was placed across the stenosis under roadmap guidance. The balloon was inflated to nominal pressure, held in place for 2-minute inflation and then deflated and removed
over the wire. Subsequent arteriogram demonstrated an excellent technical result. The tibioperoneal trunk was widely patent with brisk flow into the peroneal artery and no residual stenosis identified. No filling defects or dissection identified
at the treated segment of the tibioperoneal trunk.
COMPLETION ARTERIOGRAM: Brisk flow through the tibioperoneal trunk and peroneal artery. Flow into the foot identified via reconstituted posterior tibial artery and dorsalis pedis artery. Flow to the forefoot identified.
Satisfied with this result we then concluded the procedure. Protamine was administered. The sheath tip was pulled back into the right external iliac artery. The sheath was pulled and direct manual pressure was held over the puncture site.
Hemostasis was achieved. A sterile dressing was applied.
The patient tolerated the procedure well and was taken to the recovery area in stable condition.
Signed:
Constantino Hanley III, MD
[facility] Surgery
[phone] (cell)
[2023-12-12] MEDS: LOVENOX SC (18:00)
--- NOTE | 2023-12-12 18:01 | W.PN.UPDATE ---
Update Note
Progress Note Update
Successful angioplasty of TPT stenosis today. Single vessel peroneal artery runoff. Flow to the left foot identified via reconstituted PT/DP from peroneal artery.
He also has a stenosis in the distal abdominal aorta at the NEY origin which should be evaluated at some point with CTA A/P.
Discussed angio result with Dr. Alamo and with patient's son Cb. Plan is to move forward with toe amputation if patient agrees.
Will follow along closely for wound healing after toe amp
May have option for open revascularization with pop-PT bypass if toe amp does not heal with the endo intervention performed today
Lower extremity vein mapping ordered to evaluate vein conduit availability
Ideally would get CTA A/P on this admission as well (to better evaluate infrarenal aortic stenosis @ NEY) but will give him IV hydration and time in between contrast administration (patient was very nervous about risk of contrast nephropathy for
angio today).
Call with questions/concerns
Constantino Hanley III, MD
[facility] Vascular Surgery
[phone] (xsgn)
[2023-12-12] MEDS: APRESOLINE 5 MG IV (18:22)
--- NOTE | 2023-12-12 18:29 | PTCARENOTE ---
Pt's RFA IV noted as infiltrated before the start of IV abx. site d/c'd and warm compress applied. Pt was given scheduled ASA and PRN hydralazine during post op PACU. SBP improved from 190 to a70's. Sleeps when undisturbed. Follows groin care
instructions and pressing down on right groin when coughing or adjusting head on pillow. Denies urge to void.
[2023-12-12] MEDS: CRESTOR 5 MG PO (20:34)
[2023-12-12 21:14] LABS: Glucose - Point of Care 153 mg/dl (70-99)
[2023-12-13] VITALS (7 sets, daily range): BP systolic 133–159; BP diastolic 60–66; BMI 24.0
--- NOTE | 2023-12-13 01:39 | PTCARENOTE ---
Pt received from livestock laborer [email or web address] able to make his needs known. Pt & family explained about post cath care & restrictions. Pt call marcus in reach.Plan of care continued.
[2023-12-13] MEDS: UNASYN IV ×4 (04:07→22:24)
[2023-12-13 07:06] LABS: Glucose - Point of Care 218 mg/dl (70-99)
--- NOTE | 2023-12-13 07:17 | W.PN.VS ---
Today's Communication / Plan
-
See below.
Assessment/Plan
-
Assessment: �73-year-old male with non healing/cellulitis of left second digit, suspect PAD, POD #1 �Balloon angioplasty of left tibioperoneal trunk stenosis (3.5 mm x 40 mm angioplasty balloon), siagnostic aortobiiliac arteriogram, diagnostic left
lower extremity arteriogram, ultrasound-guided percutaneous access to the right common femoral artery
Plan:
Can remove right groin dressing this afternoon
Ultrasound vein mapping
�CTA A/P on this admission as well (to better evaluate infrarenal aortic stenosis @ NEY) will give time in between contrast administration (patient was very nervous about risk of contrast nephropathy from angio yesterday).
Family discussion
Continue aspirin and statin
Subjective Data
-
Date of Service: December 13, 2023
Patient seen and examined at bedside, offers no complaints. Denies nausea, vomiting, fever, chills. Denies pain at right groin puncture site.
Objective Data
-
Vital Signs
Temp Pulse Resp BP Pulse Ox
97.6 F 81 16 143/65 98
12/13/23 05:26 12/13/23 05:26 12/13/23 05:26 12/13/23 05:26 12/13/23 05:26
Intake and Output
12/12/23 12/13/23 12/14/23
06:59 06:59 06:59
Intake Total 430 / 430 790 / 790
Output Total 1000 / 1000
Balance 430 / 430 -210 / -210
Intake:
Oral fluids 180 / 180 240 / 240
IV fluids (Total) 300 / 300
IV piggybacks 250 / 250 250 / 250
Output:
Urine, Voided 1000 / 1000
Other:
Number of approximated SMALL 2
amounts of urine
Number of approximated MODERATE 2
amounts of urine
How many times incontinent 3
MODERATE amount urine
Calcium 8.6 mg/dl (8.4-10.2) 12/12/23 05:16
Total Bilirubin 0.8 mg/dl (0.2-1.3) 12/10/23 12:33
AST 28 U/L (17-59) 12/10/23 12:33
ALT 21 U/L (0-50) 12/10/23 12:33
Alkaline Phosphatase 83 U/L (38-126) 12/10/23 12:33
Total Protein 5.9 g/dl (6.3-8.2) L 12/10/23 12:33
Albumin 3.3 g/dl (3.5-5.0) L 12/10/23 12:33
Physical Exam
-
AAOx3
No tachycardia
No dyspnea on room air
ABD flat, nontender, nondistended
Right groin puncture site without hematoma, dressing CDI, all surrounding compartments soft
Bilateral DP +1 palpable
[2023-12-13 08:02] LABS: % Basophils 0.1 % (0-2); % Immature Granulocytes 0.5 % (0-0.5); % Lymphocytes 4.3 % (20.5-51.1); % Monocytes 3.9 % (1.7-9.3); % Neutrophils 91.2 % (42.2-75.2); Absolute Immature Granulocytes 0.1 10^3/uL (0-0.05); Absolute Lymphocytes 0.5 10^3/uL (1.2-3.4); Absolute Monocytes 0.4 10^3/uL (0.1-0.6); Absolute Neutrophils 9.5 10^3/uL (1.4-6.5); Hematocrit 34.2 % (39.0-52.0); Hemoglobin 11.9 g/dL (13.0-18.0); Mean Corp Hgb Conc. 34.8 g/dL (33.0-37.0); Mean Corpuscular Hgb 30.2 pg (27.0-31.0); Mean Corpuscular Volume 86.8 fL (80.0-94.0); Mean Platelet Volume 10.5 fL (7.4-10.4); Nucleated Red Blood Cells % 0 % (-); Platelet Count 303 10^3/uL (130-400); Red Blood Cell Count 3.94 10^6/uL (4.70-6.10); Red Cell Dist. Width 11.9 % (11.5-14.5); White Blood Cell Count 10.4 10^3/uL (4.8-10.8)
[2023-12-13] MEDS: COZAAR 25 MG PO (08:10)
[2023-12-13] MEDS: VISBIOME 1 CAP PO (08:11)
[2023-12-13] MEDS: LOW STRENGTH ASPIRIN 81 MG PO (08:11)
[2023-12-13 08:35] LABS: Blood Urea Nitrogen 20 mg/dl (9-20); Calcium 8.3 mg/dl (8.4-10.2); Carbon Dioxide 23 mmol/L (22-30); Chloride 100 mmol/L (98-107); Estimated Creatinine Clearance 87 ml/min; Glucose 213 mg/dl (70-99); Potassium 4.5 mmol/L (3.5-5.1); Sodium 132 mmol/L (135-145); eGFR > 60.00
--- NOTE | 2023-12-13 09:20 | W.PN.HOSP.TC ---
Today's Communication/Plan
-
Await podiatry input
Assessment / Plan
Assessment / Plan
Gen-AAOx3, NAD
HEENT-NC, AT, anicteric, clear oral mm
Neck-supple
CV-reg, no M, +S1/S2
Lungs-clear B/L
Abd-soft, NT, ND
Ext-no edema
Musculoskeletal-no cyanosis, clubbing, left foot dressing intact
Skin-warm and dry
Neuro-grossly non-focal
Psych-calm, cooperative
Sepsis - due to left second toe infected ulcer, left foot cellulitis, and osteomyelitis of left second middle and distal phalanx--> continue IV Unasyn, MRI consistent with osteomyelitis of second distal phalanx and distal aspect of the second middle
phalanx. Superficial wound culture with Staph aureus and Streptococcus agalactiae, ID podiatry and vascular surgery consulted.
Podiatry to decide on amputation of left second toe.
Left lower extremity critical limb ischemia -stable after balloon angioplasty of left tibioperoneal trunk 12/12.
Essential HTN-->substitute NUT SORTER ARB (Edarbi 40 mg) with Losartan 25 mg, adjust dose as needed, Hydralazine IV PRN for SBP > 150.
ASCVD with recent stroke (mild LUE and LLE weakness)/ HLD-->pt states his recent LDL at 150, goal is < 70 following CVA, LDL 125 now, would like to start statin and family friend opted for Crestor upon discussion with Dr Mckenna. Crestor 5 mg
started
DM2 with hyperglycemia -not on diabetes meds at home. Hemoglobin A1c 7.2%. Glucose 213 this morning. Continue sliding scale insulin.
Normocytic anemia -suspect chronic. Hemoglobin relatively stable. Etiology unclear.
TWI on inferior lateral leads, suspect chronic-->Dr Mckenna discussed with pt and son on the phone. Remains chest pain-free
Hyponatremia--> NA 132 stable, cont to monitor
DVT ppx-->Lovenox SQ
CODE STATUS-->Full code
Anticipated Discharge: > 48 hours
Subjective/Interval History
-
Date of Service: December 13, 2023
Patient seen and examined. Left foot pain with weightbearing. No pain while supine.
Objective Data
-
Labs:
Laboratory Results
12/13/23
07:28
WBC 10.4
Hgb 11.9 L
Hct 34.2 L
Plt Count 303 D
Sodium 132 L
Potassium 4.5
Chloride 100
Carbon Dioxide 23
BUN 20
Creatinine 0.7
Glucose 213 H
Calcium 8.3 L
Vital Signs:
Vital Signs
Temp Pulse Resp BP Pulse Ox
97.9 F 68 16 150/66 97
12/13/23 07:55 12/13/23 08:10 12/13/23 07:55 12/13/23 08:10 12/13/23 08:05
I&O
12/12/23 12/13/23 12/14/23
06:59 06:59 06:59
Intake Total 430 / 430 790 / 790
Output Total 1000 / 1000
Balance 430 / 430 -210 / -210
Review of Systems
-
History Source: Patient
All other systems: Reviewed and negative
[2023-12-13] MEDS: NOVOLOG FLEXPEN-LOW RESISTANCE 2 UNITS SC ×2 (09:35→12:57)
[2023-12-13] MEDS: FLUSH (NSS) 1 FLUSH IV ×2 (10:24→16:31)
[2023-12-13 12:54] LABS: Glucose - Point of Care 226 mg/dl (70-99)
--- NOTE | 2023-12-13 16:17 | W.PN.ID1 ---
Date of Service
Date of Service: December 13, 2023
Today's Communication
Continue antibiotics.
Assessment / Plan
Left second toe osteomyelitis
Left foot cellulitis
Leukocytosis
Fevers
Hx CVA with mild left residual
HTN
Dyslipidemia
DM
Recommendations:
Continue with Unasyn.
Patient is status post angioplasty of the left lower extremity for critical limb ischemia.
Await further input from Podiatry. At present, doubt that toe is salvageable and feel that amputation for surgical cure would be optimal.
Patient will make decision following further input from Podiatry.
Monitor white count and temperature curve.
Chief Complaint
-: Other (Left 2nd toe gangrene and osteomyelitis)
Subjective / Review of Systems
Review of Systems: No Fever and No Chills
Vital Signs / Physical Exam
Vital Signs
Vital Signs
Temp Pulse Resp BP Pulse Ox
97.9 F 68 18 159/64 99
12/13/23 11:18 12/13/23 11:18 12/13/23 11:18 12/13/23 11:18 12/13/23 11:18
Physical Exam
Constitutional: No Acute Distress, Comfortable and Non-toxic
Pulmonary: Non Labored; Negative Wheezes
Gastrointestinal: Non Distended
Extremities: Other (Left foot with ongoing erythema, although decreased from previous. No crepitance.)
Wound: Other (left 2nd toe with gangrene. )
Neurological: Awake and Alert
Psychological: Calm
Objective Data
Lab Data
Lab Results
12/13/23 07:28
12/13/23 07:28
Estimated Creat Clear 87 ml/min 12/13/23 07:28
Lactic Acid Cancelled 12/10/23 16:15
Total Bilirubin 0.8 mg/dl (0.2-1.3) 12/10/23 12:33
AST 28 U/L (17-59) 12/10/23 12:33
ALT 21 U/L (0-50) 12/10/23 12:33
Alkaline Phosphatase 83 U/L (38-126) 12/10/23 12:33
Most recent labs reviewed.
Micro Results:
12/10/23 12:48 Blood Culture - Preliminary
Blood/Venous No Growth in 72 hours- Final report to follow
12/10/23 12:33 Blood Culture - Preliminary
Blood/Venous No Growth in 72 hours- Final report to follow
12/11/23 12:12 Wound Culture - Final
Toe S aureus-Methicillin Sensitive
Streptococcus agalactiae
Gram Stain - Final
12/10/23 18:46 MRSA Screen - Final
Nose No Methicillin Resistant Staphylococcus aureus isolated.
Imaging:
12/11/2023 MRI left lower extremity: Examination is limited by motion artifact, although osseous erosion at the tuft of the second distal phalanx is noted. Bone marrow edema is noted within the second distal phalanx and the distal aspect of the
second middle phalanx, most compatible with osteomyelitis. No acute fracture or dislocation. Moderate osteoarthritis is noted. Soft tissue edema around the second toe is compatible with cellulitis, although no drainable fluid collection or
abscess is noted.
12/10/2023 Duplex ultrasound lower extremity: No evidence of DVT. Mildly enlarged left groin lymph nodes. Please see full dictation for additional detail.
12/10/2023 X-ray left foot: Osteolysis of the distal tuft of the distal phalanx of the second digit concerning for osteomyelitis.
Care Review
Plan reviewed with: Physician (Podiatry)
--- NOTE | 2023-12-13 16:41 | PTCARENOTE ---
Pt AAO x3, SAVAGE; OOB to chair/ambulates short distances in room with assist x1/walker; adrienne well; has slight LLE weakness. VSS. On room air- pulse ox 97%, no c/o SB. Abd soft, adrienne PO well. Voids in BR without difficulty. Rt groin dsg D/I;
circ/neuro checks to BLE WNL;pedal pulses weak. Rt 2nd toe dsg changed by podiatry; currently D/I. Resting in bed at present; family members in room. Will continue to monitor.
--- NOTE | 2023-12-13 16:48 | W.PN.POD ---
Today's Communication
Today's Communication
PT scheduled for LT 2nd toe amputation tomorrow 12/14/23 11 am
Assessment / Plan
-
Lt foot cellultis
LT 2nd toe dry gangrene
PAD - S/P LT L/E angiogram with balloon angioplasty below knee popliteal artery 12/12/23
Diabetic vascular disease
Plan : Cont IV abx per ID
Discussed in length with patient and his family at bedside about his toe gangrene and need for toe amputation also discussed about possible distal metatarsal resection due to loss of soft tissue . Discussed about reinfection, non healing, more need
for amputations, Loss of limb and life. no guarantees given to save the limb.
PT understands and agrees to proceed with LT 2nd toe amputation
Discussed with primary hops service
NPO past midnight
Scheduled him for toe amputation 12/14/23 around 11 AM.
Answered all questions to the best of my knowledge
Subjective
Chief Complaint
LT 2nd toe gangrene
Subjective
PT seen at bedside, no acute distress, no fever, chills. LT 2nd toe with dry gangrenous changes noted, redness to the forefoot
Objective
Temp Pulse Resp BP Pulse Ox
97.9 F 68 18 159/64 97
12/13/23 11:18 12/13/23 11:18 12/13/23 11:18 12/13/23 11:18 12/13/23 16:41
12/13/23 07:28
12/13/23 07:28
Vital Signs and Lab results were reviewed.
Diminished pedal pulses To lt foot
LT foot minimal edema, erythema to forefoot noted, dry gangrenous changes to most of the 2nd toe dorsal aspect, No active purulence noted, No signs of any crepitus felt.
No other open ulcerations noted.
[2023-12-13 17:13] LABS: Glucose - Point of Care 174 mg/dl (70-99)
[2023-12-13] MEDS: LOVENOX 40 MG SC (17:22)
[2023-12-13] MEDS: CRESTOR 5 MG PO (17:22)
[2023-12-13] MEDS: NOVOLOG FLEXPEN-LOW RESISTANCE 1 UNITS SC (17:55)
[2023-12-13 19:21] LABS: INR 1.13; PT 14.3 Sec (11.4-14.6)
[2023-12-14] VITALS (9 sets, daily range): BP systolic 136–177; BP diastolic 59–83; BMI 24.0
[2023-12-14] MEDS: UNASYN IV ×2 (04:36→10:17)
[2023-12-14 04:42] LABS: Glucose - Point of Care 166 mg/dl (70-99)
--- NOTE | 2023-12-14 06:28 | PTCARENOTE ---
Pt aaox3 able to make his needs known. Denies pain. Pt was provided with CHG wipes & pt was washed up. Linens changed.Pt NPO since MN.Plan of care continued.
--- NOTE | 2023-12-14 07:34 | WOUNDNOTE ---
WOC RN note: t/c Spoke with [employer] Supervisor Debbie who stated she will fax the [facility] order for the L Darco wedge shoe to [facility] and will include patient's shoe size.
[2023-12-14] MEDS: COZAAR 25 MG PO (07:43)
[2023-12-14] MEDS: VISBIOME 1 CAP PO (07:43)
[2023-12-14] MEDS: LOW STRENGTH ASPIRIN 81 MG PO (07:43)
[2023-12-14] MEDS: NOVOLOG FLEXPEN-LOW RESISTANCE 1 UNITS SC (07:53)
[2023-12-14 07:54] LABS: Glucose - Point of Care 150 mg/dl (70-99)
--- NOTE | 2023-12-14 08:12 | W.PN.HOSP.TC ---
Addendum entered and electronically signed by Shekhar Velazquez DO 12/14/23 14:26:
Updated son on the phone, all questions answered.
Consult PT/OT.
Original Note:
Today's Communication/Plan
-
OR today
Assessment / Plan
Assessment / Plan
Gen-AAOx3, NAD
HEENT-NC, AT, anicteric, clear oral mm
Neck-supple
CV-reg, no M, +S1/S2
Lungs-clear B/L
Abd-soft, NT, ND
Ext-no edema
Musculoskeletal-no cyanosis, clubbing, left foot dressing intact
Skin-warm and dry
Neuro-grossly non-focal
Psych-calm, cooperative
Sepsis - due to left second toe infected ulcer, left foot cellulitis, and osteomyelitis of left second middle and distal phalanx--> continue IV Unasyn, MRI consistent with osteomyelitis of second distal phalanx and distal aspect of the second middle
phalanx. Superficial wound culture with Staph aureus and Streptococcus agalactiae, ID podiatry and vascular surgery consulted.
Podiatry plans on left second toe amputation today.
Left lower extremity critical limb ischemia -stable after balloon angioplasty of left tibioperoneal trunk 12/12.
Essential HTN-->substitute LIQUID SUGAR FORTIFIER ARB (Edarbi 40 mg) with Losartan 25 mg, adjust dose as needed, Hydralazine IV PRN for SBP > 150.
ASCVD with recent stroke (mild LUE and LLE weakness)/ HLD-->pt states his recent LDL at 150, goal is < 70 following CVA, LDL 125 now, would like to start statin and family friend opted for Crestor upon discussion with Dr Mckenna. Crestor 5 mg
started
DM2 with hyperglycemia -not on diabetes meds at home. Hemoglobin A1c 7.2%. Glucose 166 this morning. Continue sliding scale insulin.
Normocytic anemia -suspect chronic. Hemoglobin relatively stable. Etiology unclear.
TWI on inferior lateral leads, suspect chronic-->Dr Mckenna discussed with pt and son on the phone. Remains chest pain-free
Hyponatremia--> NA 132 stable, cont to monitor
DVT ppx-->Lovenox SQ
CODE STATUS-->Full code
Anticipated Discharge: > 48 hours
Subjective/Interval History
-
Date of Service: December 14, 2023
Patient seen and examined. No complaints. Awaiting surgery.
Objective Data
-
Labs:
Laboratory Results
12/14/23
07:25
Sodium Pending
Potassium Pending
Chloride Pending
Carbon Dioxide Pending
BUN Pending
Creatinine Pending
Glucose Pending
Calcium Pending
Vital Signs:
Vital Signs
Temp Pulse Resp BP Pulse Ox
97.8 F 65 16 158/64 96
12/14/23 07:30 12/14/23 07:43 12/14/23 07:30 12/14/23 07:43 12/14/23 07:30
I&O
12/13/23 12/14/23 12/15/23
06:59 06:59 06:59
Intake Total 790 / 790 900 / 900
Output Total 1000 / 1000 1000 / 1000
Balance -210 / -210 -100 / -100
Review of Systems
-
History Source: Patient
All other systems: Reviewed and negative
[2023-12-14 08:33] LABS: Blood Urea Nitrogen 17 mg/dl (9-20); Calcium 8.2 mg/dl (8.4-10.2); Carbon Dioxide 29 mmol/L (22-30); Chloride 99 mmol/L (98-107); Estimated Creatinine Clearance 61 ml/min; Glucose 146 mg/dl (70-99); Sodium 130 mmol/L (135-145); eGFR > 60.00
[2023-12-14] MEDS: FLUSH (NSS) 1 FLUSH IV ×2 (10:17→16:44)
[2023-12-14 11:11] LABS: Glucose - Point of Care 143 mg/dl (70-99)
[2023-12-14] MEDS: NOVOLOG FLEXPEN-LOW RESISTANCE SC (11:28)
--- NOTE | 2023-12-14 13:40 | W.SUR.POST ---
Surgical Immediate Post Op
Note
Pre Op Diagnosis: LT 2nd toe gangrene
Post Op Diagnosis: Same as above
Procedure Performed: LT 2nd toe amputation with primary closure
Primary Surgeon: Dr. Jasmeet GARCIA
Secondary Surgeons: None
Anesthesia: MAC with local block
Estimated Blood Loss: 5cc's
Fluids: N
Drains/Shunts: N
Specimens/Cultures: Aerobic and anaerobic cultures and LT 2nd toe path specimen
Doppler/Duplex/Angio (Y/N): N
Complications: None
Operative Findings: No deep tissue purulence noted, healthy blood floe at the surgical flaps noted
PT stable In PACU with stable vital signs and intact vascular status to LT foot
[2023-12-14 13:50] LABS: Glucose - Point of Care 140 mg/dl (70-99)
--- NOTE | 2023-12-14 14:34 | SUR.PHASEI ---
comfortable in pacu, vss, glucose noted, discharged to room with report, family at bedside - updated.
--- NOTE | 2023-12-14 14:45 | PTCARENOTE ---
Pt returned from OR/PACU via bed, accompanied by PACU staff x2. Pt AAO x3, SAVAGE; LLE elevated on pillows, pt aware of NWB LLE x 2 days. VSS. On room air- pulseox 96%. Abd soft, rounded, to resume chol lowering diet. BS (+), loud. Pt DTV- urinal
at bedside. Lt foot dsg D/I; unable to assess pedal pulse d/t dsg. Resting in bed at present, no c/o. Family members at bedside. Zackery continue to monitor.
--- NOTE | 2023-12-14 15:53 | W.PN.ID1 ---
Date of Service
Date of Service: December 14, 2023
Today's Communication
Narrow to cefazolin.
Assessment / Plan
Left second toe osteomyelitis
- s/p amputation
Left foot cellulitis
Leukocytosis
Fevers
Hx CVA with mild left residual
HTN
Dyslipidemia
DM
Recommendations:
Cultures revealed only growth of Staph aureus (MSSA) and strep agalactiae.
Narrow to cefazolin 2 g IV every 8 hours.
Patient is status post angioplasty of the left lower extremity for critical limb ischemia as well as amputation of the left second toe with suspected surgical cure.
Chief Complaint
-: Other (Left 2nd toe gangrene and osteomyelitis)
Subjective / Review of Systems
Patient seen and examined. Status post amputation of the left second toe earlier today. Denies pain at present.
Vital Signs / Physical Exam
Vital Signs
Vital Signs
Temp Pulse Resp BP Pulse Ox
98.1 F 74 18 172/74 97
12/14/23 15:30 12/14/23 15:30 12/14/23 15:30 12/14/23 15:30 12/14/23 15:30
Physical Exam
Constitutional: No Acute Distress, Comfortable and Non-toxic
Eyes: Sclera Anicteric
Pulmonary: Non Labored
Extremities: Edema (Trace left lower extremity edema); Negative Erythema (No erythema extending up leg.)
Wound: Other (Left foot dressed)
Neurological: Awake and Alert
Psychological: Calm
Objective Data
Lab Data
Lab Results
12/13/23 07:28
12/14/23 07:25
PT 14.3 Sec (11.4-14.6) 12/13/23 19:03
INR 1.13 12/13/23 19:03
Estimated Creat Clear 61 ml/min 12/14/23 07:25
Lactic Acid Cancelled 12/10/23 16:15
Total Bilirubin 0.8 mg/dl (0.2-1.3) 12/10/23 12:33
AST 28 U/L (17-59) 12/10/23 12:33
ALT 21 U/L (0-50) 12/10/23 12:33
Alkaline Phosphatase 83 U/L (38-126) 12/10/23 12:33
Most recent labs reviewed.
Micro Results:
12/14/23 13:00 Wound Culture - Pending
Foot - Left Gram Stain - Pending
12/14/23 13:00 Anaerobic Culture - Pending
Foot - Left
12/10/23 12:48 Blood Culture - Preliminary
Blood/Venous No Growth in 4 days- Final report to follow
12/10/23 12:33 Blood Culture - Preliminary
Blood/Venous No Growth in 4 days- Final report to follow
12/11/23 12:12 Wound Culture - Final
Toe S aureus-Methicillin Sensitive
Streptococcus agalactiae
Gram Stain - Final
12/10/23 18:46 MRSA Screen - Final
Nose No Methicillin Resistant Staphylococcus aureus isolated.
Imaging:
12/11/2023 MRI left lower extremity: Examination is limited by motion artifact, although osseous erosion at the tuft of the second distal phalanx is noted. Bone marrow edema is noted within the second distal phalanx and the distal aspect of the
second middle phalanx, most compatible with osteomyelitis. No acute fracture or dislocation. Moderate osteoarthritis is noted. Soft tissue edema around the second toe is compatible with cellulitis, although no drainable fluid collection or
abscess is noted.
12/10/2023 Duplex ultrasound lower extremity: No evidence of DVT. Mildly enlarged left groin lymph nodes. Please see full dictation for additional detail.
12/10/2023 X-ray left foot: Osteolysis of the distal tuft of the distal phalanx of the second digit concerning for osteomyelitis.
--- NOTE | 2023-12-14 16:07 | PTCARENOTE ---
Pt resting comfortably in bed since return from OR, no c/o. Voided in urinal without difficulty. Lt foot dsg D/I; LLE elevated on pillow. Will continue to monitor..
--- NOTE | 2023-12-14 16:24 | CM ---
Met with patient's son, daughter, and at their request. Family was wondering if they could get a handicap placard. Put an application on chart and made attending aware. They also wondered if there were any resources for patient to be compliant
with his medication. Explanation provided that as patient is not deemed incompetent to make informed decisions, there is no way to force him to take medications however provided empathy and support. The family wanted to know if there are support
groups for patient's . Will research and family wanted to speak with attending.
Texted attending who left for the day but stated that the attending tomorrow will f/u.
Plan: Case management will continue to follow and assist with discharge planning. Home when stable with VN.
[2023-12-14] MEDS: ANCEF 10 IV (16:43)
[2023-12-14 17:39] LABS: Glucose - Point of Care 204 mg/dl (70-99)
[2023-12-14] MEDS: CRESTOR 5 MG PO (17:39)
[2023-12-14] MEDS: LOVENOX 40 MG SC (17:39)
[2023-12-14] MEDS: NOVOLOG FLEXPEN-LOW RESISTANCE 2 UNITS SC (17:40)
[2023-12-14 22:28] LABS: Glucose - Point of Care 205 mg/dl (70-99)
[2023-12-15] MEDS: ANCEF 10 IV ×4 (00:19→23:12)
[2023-12-15 03:00] VITALS: BP 142/63
--- NOTE | 2023-12-15 06:17 | PTCARENOTE ---
Pt's foot dressing came off while patient was sleeping. Cleansed dressing with saline per pt request, and redressed with allyson and adaptic. Pt without any complaints at this time. Resting comfortably, call marcus within reach.
[2023-12-15 08:09] LABS: Glucose - Point of Care 119 mg/dl (70-99)
[2023-12-15 08:22] VITALS: BP 166/68
[2023-12-15 08:30] LABS: Hematocrit 29.6 % (39.0-52.0); Hemoglobin 10.3 g/dL (13.0-18.0); Mean Corp Hgb Conc. 34.8 g/dL (33.0-37.0); Mean Corpuscular Hgb 30.5 pg (27.0-31.0); Mean Corpuscular Volume 87.6 fL (80.0-94.0); Mean Platelet Volume 10.7 fL (7.4-10.4); Platelet Count 314 10^3/uL (130-400); Red Blood Cell Count 3.38 10^6/uL (4.70-6.10); Red Cell Dist. Width 11.9 % (11.5-14.5); White Blood Cell Count 10.4 10^3/uL (4.8-10.8)
[2023-12-15] MEDS: NOVOLOG FLEXPEN-LOW RESISTANCE SC (08:39)
[2023-12-15] MEDS: FLUSH (NSS) 2 FLUSH IV ×2 (08:40→17:22)
[2023-12-15] MEDS: COZAAR 25 MG PO (08:41)
[2023-12-15] MEDS: LOW STRENGTH ASPIRIN 81 MG PO (08:42)
[2023-12-15] MEDS: VISBIOME 1 CAP PO (08:42)
[2023-12-15] MEDS: APRESOLINE 5 MG IV ×2 (08:44→23:23)
[2023-12-15 09:04] LABS: ALT (SGPT) 20 U/L (0-50); AST (SGOT) 26 U/L (17-59); Albumin 2.7 g/dl (3.5-5.0); Alkaline Phosphatase 87 U/L (38-126); Blood Urea Nitrogen 13 mg/dl (9-20); Calcium 8.1 mg/dl (8.4-10.2); Carbon Dioxide 27 mmol/L (22-30); Chloride 102 mmol/L (98-107); Estimated Creatinine Clearance 67 ml/min; Glucose 117 mg/dl (70-99); Potassium 4.1 mmol/L (3.5-5.1); Sodium 133 mmol/L (135-145); Total Bilirubin 0.3 mg/dl (0.2-1.3); Total Protein 5.3 g/dl (6.3-8.2); eGFR > 60.00
--- NOTE | 2023-12-15 11:03 | W.PN.POD ---
Today's Communication
Today's Communication
PT stable per podiatry
Assessment / Plan
-
Lt foot cellultis- resolving well
S/p LT 2nd toe amputation POD # 1
PAD - S/P LT L/E angiogram with balloon angioplasty below knee popliteal artery 12/12/23
Diabetic vascular disease
Plan : Cont IV abx per ID
Changed surgical dressings, Applied adaptic, gauze and kerlix to LT foot
PT can ambulate with only LT heel wt bear with walker as tolerated
PT will need for at home dressing changes once every other day
HE will follow up in my office next Wednesday 12/20 at 2 pm
Abx per ID for another 1 wk
PT stable per podiatry
Subjective
Chief Complaint
LT 2nd toe gangrene
Subjective
PT seen at bedside, no acute distress, no fever, chills. S/p LT 2nd toe amputation with primary closure POD #1
Objective
Temp Pulse Resp BP Pulse Ox
97.6 F 61 18 166/68 98
12/15/23 08:22 12/15/23 08:22 12/15/23 08:22 12/15/23 08:44 12/15/23 08:22
12/15/23 06:56
12/15/23 06:56
Vital Signs and Lab results were reviewed.
Lt Foot intact Dp and PT pulses, LT foot warm, well perfused
LT foot resolved erythema and resolved edema
LT 2nd toe amputation site is clean, dry, intact sutures, no bleeding, no new necrosis noted, no drainage noted, well coapted skin incision.
[2023-12-15 11:21] LABS: Glucose - Point of Care 173 mg/dl (70-99)
[2023-12-15 11:43] VITALS: BP 162/62
[2023-12-15] MEDS: NOVOLOG FLEXPEN-LOW RESISTANCE 1 UNITS SC ×2 (12:15→17:22)
--- NOTE | 2023-12-15 14:50 | W.PN.ID1 ---
Date of Service
Date of Service: December 15, 2023
Today's Communication
Continue abx.
Assessment / Plan
Left second toe osteomyelitis
- s/p amputation (12/14/2023)
Left foot cellulitis
Leukocytosis
Fevers
Hx CVA with mild left residual
HTN
Dyslipidemia
DM
Recommendations:
Cultures revealed only growth of Staph aureus (MSSA) and strep agalactiae.
Continue cefazolin 2 g IV every 8 hours while inpatient. At D/C, transition to keflex 500 mg PO QID, to continue abx through 12/26/23.
Chief Complaint
-: Other (Left 2nd toe gangrene and osteomyelitis)
Subjective / Review of Systems
Review of Systems: No Fever and No Chills
Vital Signs / Physical Exam
Vital Signs
Vital Signs
Temp Pulse Resp BP Pulse Ox
97.2 F 70 20 162/62 96
12/15/23 11:43 12/15/23 11:43 12/15/23 11:43 12/15/23 11:43 12/15/23 11:43
Physical Exam
Constitutional: No Acute Distress, Comfortable and Non-toxic
Eyes: Sclera Anicteric
Pulmonary: Non Labored
Skin: Warm and Dry; Negative Rash or Jaundice
Wound: Other (Left second toe amp site dressed. Decreased erythema over the foot.)
Neurological: Awake and Alert
Psychological: Calm
Objective Data
Lab Data
Lab Results
12/15/23 06:56
12/15/23 06:56
PT 14.3 Sec (11.4-14.6) 12/13/23 19:03
INR 1.13 12/13/23 19:03
Estimated Creat Clear 67 ml/min 12/15/23 06:56
Lactic Acid Cancelled 12/10/23 16:15
Total Bilirubin 0.3 mg/dl (0.2-1.3) 12/15/23 06:56
AST 26 U/L (17-59) 12/15/23 06:56
ALT 20 U/L (0-50) 12/15/23 06:56
Alkaline Phosphatase 87 U/L (38-126) 12/15/23 06:56
Most recent labs reviewed.
Micro Results:
12/10/23 12:48 Blood Culture - Final
Blood/Venous No Growth - Final Report
12/10/23 12:33 Blood Culture - Final
Blood/Venous No Growth - Final Report
12/14/23 13:00 Anaerobic Culture - Preliminary
Foot - Left Culture pending. Anaerobic cultures are examined after 3
days incubation. Additional information to follow.
12/14/23 13:00 Wound Culture - Preliminary
Foot - Left Gram Stain - Preliminary
12/11/23 12:12 Wound Culture - Final
Toe S aureus-Methicillin Sensitive
Streptococcus agalactiae
Gram Stain - Final
12/10/23 18:46 MRSA Screen - Final
Nose No Methicillin Resistant Staphylococcus aureus isolated.
Imaging:
12/11/2023 MRI left lower extremity: Examination is limited by motion artifact, although osseous erosion at the tuft of the second distal phalanx is noted. Bone marrow edema is noted within the second distal phalanx and the distal aspect of the
second middle phalanx, most compatible with osteomyelitis. No acute fracture or dislocation. Moderate osteoarthritis is noted. Soft tissue edema around the second toe is compatible with cellulitis, although no drainable fluid collection or
abscess is noted.
12/10/2023 Duplex ultrasound lower extremity: No evidence of DVT. Mildly enlarged left groin lymph nodes. Please see full dictation for additional detail.
12/10/2023 X-ray left foot: Osteolysis of the distal tuft of the distal phalanx of the second digit concerning for osteomyelitis.
--- NOTE | 2023-12-15 14:54 | W.PN.UPDATE ---
Update Note
Progress Note Update
I had a long conversation with Mr. Rodriguez and his in the room. I once again explained the importance of aggressive medical therapy for his arterial disease risk factors and close interval follow-up with both me and Dr. Alamo. We will
arrange for outpatient follow-up with me after discharge. He expressed a clear understanding of our conversation and agrees.
[2023-12-15 16:00] VITALS: BP 150/61
[2023-12-15 16:44] LABS: Glucose - Point of Care 152 mg/dl (70-99)
[2023-12-15] MEDS: CRESTOR 5 MG PO (17:23)
[2023-12-15] MEDS: LOVENOX 40 MG SC (17:23)
--- NOTE | 2023-12-15 17:32 | W.PN.HOSP.TC ---
Today's Communication/Plan
-
dc planning
Assessment / Plan
Assessment / Plan
Sepsis - due to left second toe infected ulcer, left foot cellulitis, and osteomyelitis of left second middle and distal phalanx--> continue IV Unasyn, MRI consistent with osteomyelitis of second distal phalanx and distal aspect of the second middle
phalanx. Superficial wound culture with Staph aureus and Streptococcus agalactiae, ID podiatry and vascular surgery following
Ps/p left second toe amputation today.cw wound care- podiatry plan noted.
Left lower extremity critical limb ischemia -stable after balloon angioplasty of left tibioperoneal trunk 12/12.cw modify risk factors.Follow with vascular as OP
Essential HTN-->substitute BATCHMAKER ARB (Edarbi 40 mg) with Losartan 25 mg, adjust dose as needed, Hydralazine IV PRN for SBP > 150.
ASCVD with recent stroke (mild LUE and LLE weakness)/ HLD-->pt states his recent LDL at 150, goal is < 70 following CVA, LDL 125 now, would like to start statin and family friend opted for Crestor upon discussion with Dr Mckenna. Crestor 5 mg
started
DM2 with hyperglycemia -not on diabetes meds at home. Hemoglobin A1c 7.2%. Glucose 166 this morning. Continue sliding scale insulin.
Normocytic anemia -suspect chronic. Hemoglobin relatively stable. Etiology unclear.
TWI on inferior lateral leads, suspect chronic-->Dr Mckenna discussed with pt and son on the phone. Remains chest pain-free
Hyponatremia--> NA 132 stable, cont to monitor
DVT ppx-->Lovenox SQ
CODE STATUS-->Full code
Anticipated Discharge: Within 24 hours
Subjective/Interval History
-
Date of Service: December 15, 2023
No fever or chills.
Tolerating diet.
S/p left second toe amputation. Pain under control.
Objective Data
-
Labs:
Laboratory Results
12/15/23
06:56
WBC 10.4
Hgb 10.3 L
Hct 29.6 L
Plt Count 314
Sodium 133 L
Potassium 4.1
Chloride 102
Carbon Dioxide 27
BUN 13
Creatinine 0.9
Glucose 117 H
Calcium 8.1 L
Total Bilirubin 0.3
AST 26
ALT 20
Alkaline Phosphatase 87
Vital Signs:
Vital Signs
Temp Pulse Resp BP Pulse Ox
98.1 F 64 18 150/61 94
12/15/23 16:00 12/15/23 16:00 12/15/23 16:00 12/15/23 16:00 12/15/23 16:00
I&O
12/14/23 12/15/23 12/16/23
06:59 06:59 06:59
Intake Total 900 / 900 1140 / 1140
Output Total 1000 / 1000 2645 / 2645
Balance -100 / -100 -1505 / -1505
Review of Systems
-
Constitutional: Denies Fever
EENT: Denies Sore Throat
Respiratory: Denies Cough or Trouble Breathing
Cardiac: Denies Chest Pain
Neuro: Denies Dizzy
Physical Exam
-
General: No Apparent Distress
HEENT: Moist Mucous Membranes
Respiratory: Clear to Auscultation
Cardiac: Regular Rhythm and S1/S2
GI: Soft, Nontender, Nondistended and Normal Bowel Sounds
Musculoskeletal: Other (left foot in dressing;no obvious bleeding)
Neuro: AO x 3
Psych: Calm; Negative Confused
Data Reviewed
-
Labs: Labs Reviewed by me
[2023-12-15 19:10] LABS: Troponin I < 0.012 ng/ml
[2023-12-15 21:53] LABS: Glucose - Point of Care 131 mg/dl (70-99)
[2023-12-15 23:55] VITALS: BP 155/60
[2023-12-16 03:40] VITALS: BP 166/67
[2023-12-16 07:41] VITALS: BP 162/58
[2023-12-16 08:07] LABS: Glucose - Point of Care 127 mg/dl (70-99)
[2023-12-16] MEDS: NOVOLOG FLEXPEN-LOW RESISTANCE SC ×3 (09:18→17:13)
[2023-12-16] MEDS: COZAAR 25 MG PO ×2 (09:19→11:50)
[2023-12-16] MEDS: ANCEF 10 IV ×3 (09:19→23:52)
[2023-12-16] MEDS: VISBIOME 1 CAP PO (09:20)
[2023-12-16] MEDS: GLUCOPHAGE 500 MG PO ×2 (09:20→17:05)
[2023-12-16] MEDS: LOW STRENGTH ASPIRIN 81 MG PO (09:20)
[2023-12-16] MEDS: FLUSH (NSS) 2 FLUSH IV ×2 (09:20→17:04)
[2023-12-16] MEDS: APRESOLINE 5 MG IV ×2 (09:21→17:04)
[2023-12-16 11:00] VITALS: BP 173/67
--- NOTE | 2023-12-16 11:19 | W.PN.POD ---
Today's Communication
Today's Communication
PT stable per podiatry to D/C
Assessment / Plan
-
Lt foot cellultis- resolving well
S/p LT 2nd toe amputation POD # 2
PAD - S/P LT L/E angiogram with balloon angioplasty below knee popliteal artery 12/12/23
Diabetic vascular disease
Plan : Cont IV abx per ID
Changed surgical dressings, Applied adaptic, gauze and kerlix to LT foot
PT can ambulate with only LT heel wt bear with walker as tolerated.
Keep the LT foot elevated when at rest
PT will need VN for at home dressing changes once every other day
HE will follow up in my office next Wednesday 12/20 at 2 pm
Abx per ID for another 1 wk
PT stable per podiatry
Subjective
Chief Complaint
LT 2nd toe gangrene
Subjective
PT seen at bedside, no acute distress, no fever, chills. S/p LT 2nd toe amputation with primary closure POD #2
Objective
Temp Pulse Resp BP Pulse Ox
98.1 F 66 16 162/58 96
12/16/23 07:41 12/16/23 07:41 12/16/23 07:41 12/16/23 09:21 12/16/23 07:41
12/15/23 06:56
12/15/23 06:56
Vital Signs and Lab results were reviewed.
Lt Foot intact Dp and PT pulses, LT foot warm, well perfused
LT foot resolved erythema and resolved edema
LT 2nd toe amputation site is clean, dry, intact sutures, no bleeding, no new necrosis noted, no drainage noted, well coapted skin incision
--- NOTE | 2023-12-16 11:45 | W.PN.HOSP.TC ---
Addendum entered and electronically signed by Gustavo Adam MD 12/16/23 14:28:
Reviewed EKG with on-call valve repairer reclamation Coreen Zavala
She reviewed admitting EKG as well and the EKGs have not changed. Remained asymptomatic without chest pain tolerated angiogram and surgery without any cardiac symptoms. His troponin postsurgery is also negative. Patient should follow-up with them
as an outpatient for risk assessment. She is going to arrange an outpatient appointment with their office.
This was discussed with patient and his son who is fellow in peds
Original Note:
Today's Communication/Plan
-
EKG review by cards
DC planning
Assessment / Plan
Assessment / Plan
Sepsis - due to left second toe infected ulcer, left foot cellulitis, and osteomyelitis of left second middle and distal phalanx--> continue IV Unasyn, MRI consistent with osteomyelitis of second distal phalanx and distal aspect of the second middle
phalanx. Superficial wound culture with Staph aureus and Streptococcus agalactiae, ID podiatry and vascular surgery following
s/p left second toe amputation today.cw wound care- podiatry plan noted.
Left lower extremity critical limb ischemia -stable after balloon angioplasty of left tibioperoneal trunk 12/12.cw modify risk factors.Follow with vascular as OP
Essential HTN-->substitute NCA CERTIFIED CONCIERGE ARB (Edarbi 40 mg) with Losartan -increase dose today. Pt says he would be complaint with meds going forward.
ASCVD with recent stroke (mild LUE and LLE weakness)/ HLD-->pt states his recent LDL at 150, goal is < 70 following CVA, LDL 125 now, would like to start statin and family friend opted for Crestor upon discussion with Dr Mckenna. Crestor 5 mg
started
DM2 with hyperglycemia -not on diabetes meds at home. Hemoglobin A1c 7.2%. Glucose 166 this morning. Pt agreeable for initiation of Metformin
Normocytic anemia - stable HH
TWI on inferior lateral leads, suspect chronic-- Lateral leads T wave changes may be LVH related but inferior wall leads i am not so sure -will run it by Cardiology. Change in EKG have been presented since admission, dont have prior EKG to
compare. No chest pain.
Hyponatremia--> NA 132 stable, cont to monitor
DVT ppx-->Lovenox SQ
CODE STATUS-->Full code
Anticipated Discharge: Today
Subjective/Interval History
-
Date of Service: December 16, 2023
Pain in the left forefoot with the initial step when out of bed but as he starts to walk on it it is better.
No fever or chills
Objective Data
-
Vital Signs:
Vital Signs
Temp Pulse Resp BP Pulse Ox
98.1 F 74 18 173/67 95
12/16/23 11:00 12/16/23 11:00 12/16/23 11:00 12/16/23 11:00 12/16/23 11:00
I&O
12/15/23 12/16/23 12/17/23
06:59 06:59 06:59
Intake Total 1140 / 1140 1020 / 1020 900 / 900
Output Total 2645 / 2645 3125 / 3125
Balance -1505 / -1505 1020 / 1020 -2225 / -2225
Review of Systems
-
Respiratory: Denies Trouble Breathing
Cardiac: Denies Chest Pain or Palpitations
Neuro: Denies Dizzy
Physical Exam
-
General: No Apparent Distress
HEENT: Moist Mucous Membranes
Respiratory: Clear to Auscultation
Cardiac: Regular Rhythm and S1/S2
GI: Soft
Musculoskeletal: Other (Right second toe amputation site with subcu sutures. No obvious bleeding. No obvious swelling. Surrounding cellulitis improved.)
Neuro: AO x 3
Psych: Calm; Negative Confused
Data Reviewed
-
Labs: Labs Reviewed by me
[2023-12-16 12:15] LABS: Glucose - Point of Care 134 mg/dl (70-99)
--- NOTE | 2023-12-16 14:32 | W.DS.TRANS ---
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
-
Discharge Instructions:
Sleep Apnea Risk Intermediate
Discharge Diagnosis/Procedures Left second toe osteomyelitis s/p amputation,
left foot cellulitis, PAD s/p left leg
angioplasty
Diet 2 Gram Sodium,Diabetic, Carb Controlled
Activity Other activity
Additional Activity Do not weight-bear on the left foot ;you can do
heel weightbearing
Driving Restrictions Not until seen by your Dr
Bathing Restrictions None
Other Services VN
Instructions:
Stand-Alone Forms:
Changes to Home Medications: Yes
Discharge Medications:
DC Medications w/original date entered in [employer]
acetaminophen 325 mg tablet 650 mg PO Q4HPRN PRN mild pain or temp > 100.4 F #1 tab 12/16/23
aspirin 81 mg chewable tablet (Children's Aspirin) 81 mg PO DAILY #30 tabs 12/16/23
cephalexin 500 mg capsule 500 mg PO QID 10 days #40 caps 12/16/23
losartan 50 mg tablet 50 mg PO DAILY #30 tabs 12/16/23
metformin 500 mg tablet 500 mg PO BID@0800,1700 #60 tabs 12/16/23
rosuvastatin 5 mg tablet 5 mg PO QPM #30 tabs 12/16/23
Home Medication Changes
New medications - all the above meds are new.
Pending Results: No
--- NOTE | 2023-12-16 14:34 | W.DCSUMMARY ---
Addendum entered and electronically signed by Gustavo Adam MD 12/17/23 10:27:
Date of discharge-12/17/2023
Original Note:
Discharge Summary
Discharge Data
Date of Admission: 12/10/23
Date of Discharge: 12/16/23
-
Pending Results: No
Hospital Course
Primary diagnosis:
Sepsis
Left second toe osteomyelitis
Left foot cellulitis
Left lower extremity with critical ischemia s/p balloon angioplasty
Essential hypertension
Diabetes mellitus with hemoglobin A1c 7.2
Normocytic anemia
Abnormal EKG is concerning for left ventricular hypertrophy
Secondary diagnosis:
History of CVA in the past
Hyperlipidemia
Hospital course:
Patient presented left foot cellulitis and discovered to have left second toe osteomyelitis-MRI showed Osteomyelitis of the second distal phalanx and the distal aspect of the second middle phalanx. He had associated sepsis. Not bacteremic. Seen
by wheelman had left second toe amputation after angioplasty. Was treated with IV Ancef. Wound culture showed MSSA and Streptococcus agalactiae. He was advised wound care and follow-up wheelman as an outpatient once stable.
3 amputation he had vascular studies and showed left ankle-brachial index 0.65 and left toe brachial index was 0.2. Right ankle-brachial index was 0.76 and right toe brachial index was 0.34. He had left lower extremity angiogram and balloon
angioplasty below-knee popliteal artery.
Patient known diabetic but not on medication his hemoglobin A1c was 7.2. He is also known to have hypertension but not taking his medications and his blood pressure was elevated. He had a prior history of stroke and apparently took medication for
few months and stopped. He also has hyperlipidemia for which he stopped this medication . According to son he is not compliant with his treatments. He was stressed about the importance of medication for risk modification . He is agreeable now
to take medication. He was started on aspirin, statin, losartan, and metformin.
His EKG was abnormal which showed LVH changes and T wave inversion in inferior lateral leads which may be repolarization. He did well with his surgery without any cardiac issues. He did not have any cardiac symptoms. His troponins postsurgery was
also negative. He was advised that he would need to follow-up with cardiology for risk assessment.
Consultants on board:
Vascular-Dr. Constantino Hanley
Infectious disease-Dr. Hubbard
Metal Cans Supervisor-Dr. Alamo
Discharge Plan
-
Patient Disposition: Home with Home Care
Discharge Diagnosis/Procedures: Left second toe osteomyelitis s/p amputation, left foot cellulitis, PAD s/p left leg angioplasty
Diet: 2 Gram Sodium and Diabetic, Carb Controlled
Activity: Other activity
Additional Activity: Do not weight-bear on the left foot ;you can do heel weightbearing
Driving Restrictions: Not until seen by your Dr
Bathing Restrictions: None
Other Services: VN
Activity Restrictions/Additional Instructions:
Any activity and weight bear restrictions as per podiatrists instructions. Darco ortho wedge shoe to off load L forefoot.
L 2nd toe amp-as per wheelman's instructions. 12/15/23 L 2nd toe amp site-adaptic, gauze and kerlix to LT foot once every other day.
PT can ambulate with only LT heel wt bear with walker as tolerated
Follow up with wheelman Dr. Tasneem Alamo.
Referrals:
Sarah Freitas PA-C [Specified Professional Personl] - 01/01/24 12:45 pm (Vascular follow up)
NONE,* [Family Provider] - in less than 1 week
Coreen Gibbs MD [Active] - in two weeks (their office will call you with appointment)
Prescriptions:
New
cephalexin 500 mg capsule
500 mg PO QID 10 Days Qty: 40 0RF
losartan 50 mg Tablet
50 mg PO DAILY Qty: 30 0RF
metformin 500 mg Tablet
500 mg PO BID@0800,1700 Qty: 60 0RF
acetaminophen 325 mg Tablet
650 mg PO Q4HPRN PRN (Reason: mild pain or temp > 100.4 F) Qty: 1 0RF
aspirin [Children's Aspirin] 81 mg Tablet,Chewable
81 mg PO DAILY Qty: 30 0RF
rosuvastatin 5 mg Tablet
5 mg PO QPM Qty: 30 0RF
Discontinued
azithromycin 250 mg Tablet
0 mg PO .COMPLEX
Rx Instructions:
For 250 mg dose pack: take 500 mg today (day 1), then 250 mg for 4 days (days 2-5)
Discharge Orders:
Discharge Patient (As Directed); Ordered 12/16/23
Ordered By: Gustavo Adam
[2023-12-16 15:00] VITALS: BP 170/66
[2023-12-16] MEDS: CRESTOR 5 MG PO (17:05)
[2023-12-16] MEDS: LOVENOX 40 MG SC (17:05)
[2023-12-16 17:15] LABS: Glucose - Point of Care 110 mg/dl (70-99)
[2023-12-16 19:50] VITALS: BP 144/75
[2023-12-16 21:46] LABS: Glucose - Point of Care 129 mg/dl (70-99)
[2023-12-16 23:55] VITALS: BP 121/59
[2023-12-17 06:57] LABS: Glucose - Point of Care 122 mg/dl (70-99)
[2023-12-17 08:21] VITALS: BP 144/76
[2023-12-17] MEDS: NOVOLOG FLEXPEN-LOW RESISTANCE SC (08:53)
[2023-12-17] MEDS: VISBIOME 1 CAP PO (08:54)
[2023-12-17] MEDS: LOW STRENGTH ASPIRIN 81 MG PO (08:54)
[2023-12-17] MEDS: GLUCOPHAGE 500 MG PO (08:55)
[2023-12-17] MEDS: COZAAR 50 MG PO (08:55)
[2023-12-17] MEDS: ANCEF 10 IV (08:58)
--- NOTE | 2023-12-17 10:27 | W.PN.HOSP.TC ---
Addendum entered and electronically signed by Gustavo Adam MD 12/18/23 09:55:
Patient has mobility limitation that significantly impairs his ability to participate in his ADLs. The patient has a caregiver who is able and willing to provide assistance as needed. The patient medical limitations prohibit the use of cane or
walker at this time.
Original Note:
Today's Communication/Plan
-
DC
Assessment / Plan
Assessment / Plan
Sepsis - due to left second toe infected ulcer, left foot cellulitis, and osteomyelitis of left second middle and distal phalanx--> MRI consistent with osteomyelitis of second distal phalanx and distal aspect of the second middle phalanx.
Superficial wound culture with Staph aureus and Streptococcus agalactiae, ID podiatry and vascular surgery following.Switch to oral abx on dc per ID
s/p left second toe amputation today.cw wound care- podiatry plan noted-continue with wound care every other day. Follow on 12/20 in office
Left lower extremity critical limb ischemia -stable after balloon angioplasty of left tibioperoneal trunk 12/12.cw modify risk factors.Follow with vascular as OP
Essential HTN-->substitute LOZENGE DOUGH MIXER ARB (Edarbi 40 mg) with Losartan -increase dose today. Pt says he would be complaint with meds going forward.
ASCVD with recent stroke (mild LUE and LLE weakness)/ HLD-->pt states his recent LDL at 150, goal is < 70 following CVA, LDL 125 now, would like to start statin and family friend opted for Crestor upon discussion with Dr Mckenna. Crestor 5 mg
started
DM2 with hyperglycemia -not on diabetes meds at home. Hemoglobin A1c 7.2%.. Continue with metformin
Normocytic anemia - stable HH
TWI on inferior lateral leads, suspect chronic-- Lateral leads T wave changes may be LVH related . Change in EKG have been presented since admission, dont have prior EKG to compare. No chest pain. Troponins are negative. Discussed with on-call
plumbing service technician yesterday-may be LVH related but with the risk factors he needs follow-up in the office for risk assessment. This was communicated with the patient and his son who is following pediatrics.
DVT ppx-->Lovenox SQ
CODE STATUS-->Full code
Medically stable for discharge
More than 30 minutes spent in discharge including
Final examination of the patient
Summarizing hospital stay
Instructions for continuing care to all relevant caregivers
Preparation of discharge records, prescriptions, and referral forms
Total time spent (in minutes): 32-minute
Anticipated Discharge: Today
Subjective/Interval History
-
Date of Service: December 17, 2023
No fever or chills. Improved pain from the surgical site.
Tolerating diet.
No chest pain or shortness of breath.
Patient wanted to stay yesterday as he was seeing some oozing from his wound site.
Objective Data
-
Vital Signs:
Vital Signs
Temp Pulse Resp BP Pulse Ox
98 F 70 17 144/76 96
12/17/23 08:21 12/17/23 08:55 12/17/23 08:21 12/17/23 08:55 12/17/23 08:21
I&O
12/16/23 12/17/23 12/18/23
06:59 06:59 06:59
Intake Total 1020 / 1020 2100 / 2100
Output Total 4675 / 4675 3000 / 3000
Balance 1020 / 1020 -2575 / -2575 -3000 / -3000
Review of Systems
-
EENT: Denies Sore Throat
Respiratory: Denies Cough
Abdomen/GI: Denies Abdominal Pain, Nausea or Vomiting
Neuro: Denies Dizzy
Physical Exam
-
General: No Apparent Distress
HEENT: Moist Mucous Membranes
Respiratory: Clear to Auscultation
Cardiac: Regular Rhythm and S1/S2
GI: Soft
Musculoskeletal: Other (Left second toe suture line intact. Old dried up blood on the Adaptic. Very slight serous ooze noted. No swelling around the amputation site. Improved cellulitis of the foot noted.)
Neuro: AO x 3
Psych: Calm
[2023-12-17 11:06] LABS: Glucose - Point of Care 141 mg/dl (70-99)
--- NOTE | 2023-12-17 14:40 | PTCARENOTE ---
Received patient this am AAOx3. Pt for discharge today. Tolerated diet well. Offered no complaints. Made patient comfortable. Cont to assess patient status.
--- NOTE | 2023-12-17 14:42 | PTCARENOTE ---
1340- Pt being discharged to home with [facility]. Pt instructed on Left foot wound care. Pt sent home with wound care supplies. Pt to follow up with Podiatry on 12/20/23 at 1400. Pt to follow up with Vascular on 01/01/24. Pt and family
to schedule a follow up appointment with cardiology. Pt instructed on off loading shoe for left foot. Pt stated that he has ' glucometer at home to measure glucose levels'. Discharge medications reviewed with patient an family. Pt's family friend
picked up patient for discharge. Pt's children [place]. All discharge instructions reviewed with patient, an family friend. Spoke to case management to clarify discharge planning.
--- NOTE | 2023-12-17 14:55 | CM ---
CM following re: d/c planning
Chart reviewed
Pt is medically stable for d/c
Per PT/OT porfirio post d/c recommendation is for [facility]
CM placed a referral to [facility] as [facility] is out of the patient's home care service area
SHAHEEN additionally requested that podiatry Tasneem Alamo sign home care orders since the patient does not have an assigned PCP and she agreed
Previous CM provided the family with a list of local physicians in the area that are accepting new patients
SHAHEEN is also ordering a w/c as the patient needs to totally off load his left foot per podiatry
SHAHEEN will be faxing the request to [facility] and w/c to be delivered to the patient's home tomorrow 12/18/23
No additional d/c needs noted
PLAN; pt will be discharged home with [facility]
--- NOTE | 2023-12-18 10:07 | CM ---
Updated Rx and physician note faxed to [facility] per request for WC post dc
Fax- [phone]
--- NOTE | 2023-12-26 08:29 | PN.CDI ---
CDI
- -
CDI:
Physician Documentation Request
Admit Date: 12/10/23 14:09
Dear Doctor Jair,
Please review the following and provide your response in the progress notes.
Due to conflicting documentation, please clarify the etiology of the presenting symptoms:
Clinical Indicators:
Initial VS, 12/10
100 78 16 176/65 99%
Laboratory Tests
12/10/23 12/11/23 12/12/23
12:33 06:57 05:16
WBC 13.0 H 12.1 H 10.1
12/13/23 12/15/23
07:28 06:56
WBC 10.4 10.4
Selected Entries
12/10/23
19:54
Temp 100.4 F H
H+P, 12/10
# L second toe cellulitis
PN, 12/16
#Sepsis - due to left second toe infected ulcer, left foot cellulitis, and osteomyelitis of left second middle and distal phalanx-->
Discharge Summary, 12/16
#Sepsis
#Left second toe osteomyelitis
#Left foot cellulitis
#Left lower extremity with critical ischemia s/p balloon angioplasty
Based on the above information and the recognized standard SIRS criteria, please clarify if sepsis is an accurate diagnosis, and reflective of the patient�s condition, to ensure quality of the medical record.
Please clarify the following:
Sepsis is/was present and is a clinical diagnosis based on (please include this additional support in the medical record)
Localized Infection Only, Without Systemic Illness
- indicate the site/source, such as UTI, pneumonia etc.
Other
Recognized standard criteria for this condition and other associated definitions:
Sepsis
-Systemic manifestations of infection, with 2 or more SIRS criteria which include:
-Fever > 100.4��F or hypothermia < 96.8��F
-Leukocytosis WBC > 12,000 or leukopenia, WBC < 4,000, or > 10% bands
-Tachycardia- > 90 beats/minute
-Tachypnea- RR > 20 breaths/minute or PaCO2 < 32mmHg
Source: Merck Manual 2013
-Documentation should include the known or suspected organism, and the underlying infection, such as UTI or pneumonia
Use of terms such as suspected, likely, concern for, or probable (associated with a specific diagnosis that is being evaluated, monitored, or treated as if it exists) are acceptable and can be coded in the inpatient setting, when documented at the
time of discharge.
Thank you,
Lisseth Pineda RN BSN CCDS
CDI Specialist
please contact via tiger text
Please use your independent medical judgment in providing your response.
--- NOTE | 2023-12-26 08:51 | PN.CDI ---
CDI
- -
CDI:
Physician Documentation Request
Admit Date: 12/10/23 14:09
Dear Doctor Jair,
Please review the following and provide your response in the progress notes.
Due to conflicting documentation, please clarify the etiology of the presenting symptoms:
Clinical Indicators:
Initial VS, 12/10
100 78 16 176/65 99%
Laboratory Tests
12/10/23 12/11/23 12/12/23
12:33 06:57 05:16
WBC 13.0 H 12.1 H 10.1
12/13/23 12/15/23
07:28 06:56
WBC 10.4 10.4
Selected Entries
12/10/23
19:54
Temp 100.4 F H
H+P, 12/10
# L second toe cellulitis
PN, 12/17
#Sepsis - due to left second toe infected ulcer, left foot cellulitis, and osteomyelitis of left second middle and distal phalanx-->
Discharge Summary, 12/16
#Sepsis
#Left second toe osteomyelitis
#Left foot cellulitis
#Left lower extremity with critical ischemia s/p balloon angioplasty
Based on the above information and the recognized standard SIRS criteria, please clarify if sepsis is an accurate diagnosis, and reflective of the patient�s condition, to ensure quality of the medical record.
Please clarify the following:
Sepsis is/was present and is a clinical diagnosis based on (please include this additional support in the medical record)
Localized Infection Only, Without Systemic Illness
- indicate the site/source, such as UTI, pneumonia etc.
Other
Recognized standard criteria for this condition and other associated definitions:
Sepsis
-Systemic manifestations of infection, with 2 or more SIRS criteria which include:
-Fever > 100.4��F or hypothermia < 96.8��F
-Leukocytosis WBC > 12,000 or leukopenia, WBC < 4,000, or > 10% bands
-Tachycardia- > 90 beats/minute
-Tachypnea- RR > 20 breaths/minute or PaCO2 < 32mmHg
Source: Merck Manual 2013
-Documentation should include the known or suspected organism, and the underlying infection, such as UTI or pneumonia
Use of terms such as suspected, likely, concern for, or probable (associated with a specific diagnosis that is being evaluated, monitored, or treated as if it exists) are acceptable and can be coded in the inpatient setting, when documented at the
time of discharge.
Thank you,
Lisseth Pineda RN BSN CCDS
CDI Specialist
please contact via tiger text
Please use your independent medical judgment in providing your response.
--- NOTE | 2023-12-26 14:11 | PN.CDI ---
CDI
- -
CDI:
Physician Documentation Request
Admit Date: 12/10/23 14:09
Dear Doctor Jair,
Please review the following and provide your response in the progress notes.
Due to conflicting documentation, please clarify the etiology of the presenting symptoms and POA status of the conditions/symptoms.....
Clinical Indicators:
Initial VS, 12/10
100 78 16 176/65 99%
Laboratory Tests
12/10/23 12/11/23 12/12/23
12:33 06:57 05:16
WBC 13.0 H 12.1 H 10.1
12/13/23 12/15/23
07:28 06:56
WBC 10.4 10.4
Selected Entries
12/10/23
19:54
Temp 100.4 F H
ED, 12/10
#Cellulitis of second toe of left foot
H+P, 12/10
# L second toe cellulitis
PN, 12/12
#Sepsis due to left second toe infected ulcer, left foot cellulitis,
#...and osteomyelitis of second middle and distal phalanx-->
#...continue IV Unasyn, MRI consistent with osteomyelitis, ....
PN, 12/17
#Sepsis - due to left second toe infected ulcer, left foot cellulitis, and osteomyelitis of left second middle and distal phalanx-->
Discharge Summary, 12/16
#Sepsis
#Left second toe osteomyelitis
#Left foot cellulitis
#Left lower extremity with critical ischemia s/p balloon angioplasty
Based on the above information and the recognized standard SIRS criteria, please clarify if sepsis is an accurate diagnosis(specify status on admission), and reflective of the patient�s condition, to ensure quality of the medical record.
Please clarify the following:
Sepsis is/was present(POA) and is a clinical diagnosis based on (please include this additional support in the medical record)
Sepsis evolved after admission
Localized Infection Only, Without Systemic Illness
- indicate the site/source, such as UTI, pneumonia etc.
Other
Recognized standard criteria for this condition and other associated definitions:
Sepsis
-Systemic manifestations of infection, with 2 or more SIRS criteria which include:
-Fever > 100.4��F or hypothermia < 96.8��F
-Leukocytosis WBC > 12,000 or leukopenia, WBC < 4,000, or > 10% bands
-Tachycardia- > 90 beats/minute
-Tachypnea- RR > 20 breaths/minute or PaCO2 < 32mmHg
Source: Merck Manual 2013
-Documentation should include the known or suspected organism, and the underlying infection, such as UTI or pneumonia
Use of terms such as suspected, likely, concern for, or probable (associated with a specific diagnosis that is being evaluated, monitored, or treated as if it exists) are acceptable and can be coded in the inpatient setting, when documented at the
time of discharge.
Thank you,
Lisseth Pineda RN BSN CCDS
CDI Specialist
please contact via tiger text
Please use your independent medical judgment in providing your response.
--- NOTE | 2023-12-26 15:01 | PN.CDI ---
CDI
- -
CDI:
Physician Documentation Request
Admit Date: 12/10/23 14:09
Dear Doctor Simon,
Please review the following and provide your response in the progress notes.
Clinical Indicators:
Initial VS, 12/10
100 78 16 176/65 99%
Laboratory Tests
12/10/23 12/11/23 12/12/23
12:33 06:57 05:16
WBC 13.0 H 12.1 H 10.1
12/13/23 12/15/23
07:28 06:56
WBC 10.4 10.4
Selected Entries
12/10/23
19:54
Temp 100.4 F H
ED, 12/10
#Cellulitis of second toe of left foot
H+P, 12/10
# L second toe cellulitis
PN, 12/12
#Sepsis due to left second toe infected ulcer, left foot cellulitis,
#...and osteomyelitis of second middle and distal phalanx-->
#...continue IV Unasyn, MRI consistent with osteomyelitis, ....
PN, 12/17
#Sepsis - due to left second toe infected ulcer, left foot cellulitis, and osteomyelitis of left second middle and distal phalanx-->
Discharge Summary, 12/16
#Sepsis
Please clarify the following:
Sepsis was present on admission
Sepsis was not present on admission
Other(please specify)
Use of terms such as suspected, likely, concern for, or probable (associated with a specific diagnosis that is being evaluated, monitored, or treated as if it exists) are acceptable and can be coded in the inpatient setting, when documented at the
time of discharge.
Thank you,
Lisseth Pineda RN BSN CCDS
CDI Specialist
Please contact via tiger text
Please use your independent medical judgment in providing your response.
== END 2023-12-17 14:52 | disposition home health service (06) | DRG 854 ==
LOC: 4 EAST ACU 14:09
PROVIDERS: Hospitalist; Nurse Practitioner; Registered Nurse; ADMITTING PHYSICIAN Internal Medicine; ATTENDING PHYSICIAN Internal Medicine; CONSULT PHYSICIAN Podiatrist Foot & Ankle Surgery; EMERGENCY PHYSICIAN Emergency Medicine; OTHER PHYSICIAN Internal Medicine Infectious Disease; OTHER PHYSICIAN Surgery Vascular Surgery
PROC: 047N3ZZ Dilation of Left Popliteal Artery, Percutaneous Approach (ICD-10-PCS; 2023-12-12)
PROC: B41D1ZZ Fluoroscopy of Aorta and Bilateral Lower Extremity Arteries using Low Osmolar Contrast (ICD-10-PCS; 2023-12-12)
PROC: 0Y6S0Z0 Detachment at Left 2nd Toe, Complete, Open Approach (ICD-10-PCS; 2023-12-14)
DX: A41.9 Sepsis, unspecified organism (principal); E11.52 Type 2 diabetes mellitus with diabetic peripheral angiopathy with gangrene; E87.1 Hypo-osmolality and hyponatremia; I69.354 Hemiplegia and hemiparesis following cerebral infarction affecting left non-dominant side; M86.9 Osteomyelitis, unspecified; L03.032 Cellulitis of left toe; E11.69 Type 2 diabetes mellitus with other specified complication; I10 Essential (primary) hypertension; I25.10 Atherosclerotic heart disease of native coronary artery without angina pectoris; E11.621 Type 2 diabetes mellitus with foot ulcer; L97.529 Non-pressure chronic ulcer of other part of left foot with unspecified severity; E78.5 Hyperlipidemia, unspecified; D64.9 Anemia, unspecified
CPT/HCPCS: 88305; 88311; 73620; 73718; 75625; 75716; 76937; 80048; 80053; 82962; 83036; 83605; 83721; 84484; 85025; 85027; 85610; 86850; 86900; 86901; 87040; 87070; 87075; 87077; 87147; 87186; 87205; 93005; 93922; 93970; 96365; 97110; 97112; 97116; 97162; 97166; 97530; 97535; 99285; C1725; C1769; C1894

== ENCOUNTER → 2024-07-15 14:10 | Outpatient (REF) | payer MEDICARE, SELFPAY | LOC: RAD 14:10 | PROVIDERS: ATTENDING PHYSICIAN Registered Nurse | DX: I73.9 Peripheral vascular disease, unspecified (principal) | CPT/HCPCS: 93922; 93925 ==

== ENCOUNTER → 2025-01-20 14:00 | Outpatient (REF) | payer MEDICARE, SELFPAY | LOC: RAD 14:00 | PROVIDERS: ATTENDING PHYSICIAN Surgery Vascular Surgery; FAMILY PHYSICIAN Family Medicine | DX: I73.9 Peripheral vascular disease, unspecified (principal) | CPT/HCPCS: 93922; 93925 ==

== ENCOUNTER → 2025-07-21 14:08 | Outpatient (REF) | payer MEDICARE, SELFPAY | LOC: RAD 14:08 | PROVIDERS: ATTENDING PHYSICIAN Surgery Vascular Surgery; FAMILY PHYSICIAN Family Medicine | DX: I73.9 Peripheral vascular disease, unspecified (principal) | CPT/HCPCS: 93922; 93925 ==